=== PATIENT | female | born 1950 | race Caucasian/White ===

== ENCOUNTER → 2016-07-04 | Outpatient (CLI) | payer OTHER ==
[~2016-07-04] MED LIST: BUPR200T2 PO; CHOL100010 PO; DIVA500T5 PO; DONE1TAB11 PO; DPKSR250 PO; FURO20TA PO; GDN/80 PO; LEVO75TA PO; OXCA150T2 PO; PIOG15TA24 PO; PRCSR30 PO; RAMI10CA PO; ROSU5TAB PO; VITACAP26 PO; VTMB122500 PO
[2016-07-04 18:32] LABS: BLOOD UREA NITROGEN 20 mg/dl (7-18); BUN/CREATININE RATIO 22.4 (10-20); CARBON DIOXIDE 33 mmol/L (21-32); CHLORIDE 100 mmol/L (98-107); GLUCOSE 87 mg/dl (70-99); MAGNESIUM 1.9 mg/dl (1.8-2.4); POTASSIUM 4.1 mmol/L (3.5-5.1); SODIUM 141 mmol/L (136-145)
== END | disposition home or self-care (01) ==
LOC: C.LABMFLN 11:13
PROVIDERS: ATTEND Family Medicine
DX: E11.9 Type 2 diabetes mellitus without complications (principal); I10 Essential (primary) hypertension; F03.90 Unspecified dementia, unspecified severity, without behavioral disturbance, psychotic disturbance, mood disturbance, and anxiety; E03.9 Hypothyroidism, unspecified; E87.1 Hypo-osmolality and hyponatremia

== ENCOUNTER → 2016-11-04 | Outpatient (CLI) | payer OTHER ==
[2016-11-03 18:01] LABS: BASO % 0.6 %; BASO ABS # 0.03 K/uL (0-0.2); COMPLETE YES; HEMATOCRIT 38.5 % (37-47); IG% 0.2 %; LYMPH % 21.7 %; LYMPH ABS # 1.13 K/uL (1.2-3.4); MEAN CELL VOLUME 92.8 fL (80-100); MEAN CORPUSCULAR HEMOGLOBIN 30.4 pg (25-34); MEAN CORPUSCULAR HGB CONC 32.7 g/dl (32-36); MEAN PLATELET VOLUME 12.1 fL (7.4-10.4); MONO % 11.2 %; NEUT % 65.3 %; PLATELET COUNT 198 K/uL (130-400); RED BLOOD COUNT 4.15 M/uL (4.2-5.4)
[2016-11-03 18:37] LABS: ALB/GLOB RATIO 0.8 (0.9-2); ALT/SGPT 12 U/L (12-78); AST/SGOT 12 U/L (15-37); BLOOD UREA NITROGEN 21 mg/dl (7-18); BUN/CREATININE RATIO 21.7 (10-20); CALCIUM 9.2 mg/dl (8.5-10.1); CARBON DIOXIDE 31 mmol/L (21-32); CHLORIDE 101 mmol/L (98-107); CREATININE 0.96 mg/dl (0.60-1.20); GLUCOSE 106 mg/dl (70-99); POTASSIUM 3.8 mmol/L (3.5-5.1); SODIUM 139 mmol/L (136-145)
[2016-11-03 18:48] LABS: ALKALINE PHOSPHATASE 66 U/L (45-117)
[~2016-11-04] MED LIST changes: +ASPI-435 PO; +BUPR-267 PO; +CHOL1000 PO; +LEVO88TA PO; +MAGN400T6 PO; +METF500T5 PO; +MIRA100T PO; +NIFE1TAB53 PO; +OXCA150T3 PO; +OXYB15TA PO; +SODI1TAB PO
[2016-11-04 07:08] LABS: ESTIMATED AVERAGE GLUCOSE 126 mg/dl; HA1C FLAG Normal (Normal)
[2016-11-04 18:33] LABS: RATIO 23.9 mcg/mg (0-30.0)
--- NOTE | 2016-11-10 08:58 | CODING QUERY MEDICAL NECESSITY ---
SUPPORTING DIAGNOSIS NEEDED Dorina PEREA, A supporting diagnosis is required for the test/procedure performed on this patient in order for us to be reimbursed by the patient's insurance. Please provide a supporting diagnosis for the following test/procedure listed below next to the test name along with your signature. *If there is no additional diagnosis for this patient that would support the following test/procedure please document that below next to the test/procedure. Test(s)/Procedure(s) that require a supporting diagnosis: * ([id number]) B12 VITAMIN LEVEL DIAGNOSIS: * ([id number]) VITAMIN D ASSAY DIAGNOSIS: DATE OF SERVICE: 11/03/16 Provider Signature: Date: Thank you Leo Delgadillo [facility] Information Management Once completed, please kindly fax back to [phone] For questions please call [phone]
== END | disposition home or self-care (01) ==
LOC: C.LABMFLN 09:11
PROVIDERS: ATTEND Physician Assistant
DX: E11.9 Type 2 diabetes mellitus without complications (principal); I10 Essential (primary) hypertension; E66.01 Morbid (severe) obesity due to excess calories; E03.9 Hypothyroidism, unspecified; E78.5 Hyperlipidemia, unspecified; Z78.0 Asymptomatic menopausal state; R29.898 Other symptoms and signs involving the musculoskeletal system

== ENCOUNTER → 2017-01-19 | Outpatient (CLI) | payer OTHER ==
--- NOTE | 2017-01-19 15:42 | MAMMOGRAPHY REPORT ---
BILATERAL DIGITAL SCREENING MAMMOGRAM WITH CAD: 01/19/2017 CLINICAL HISTORY: Routine screening. TECHNIQUE: Bilateral CC, MLO and repeat left CC view with the nipple in profile were obtained. Curre nt study was also evaluated with a Computer Aided Detection (CAD) system. COMPARISON: Comparison is made to exams dated: 09/19/2014 mammogram, 04/25/2013 mammogram, 03/01/2012 m ammogram, and 01/27/2011 mammogram. BREAST COMPOSITION: There are scattered areas of fibroglandular density in both breasts. FINDINGS: There are scattered benign calcifications and vascular calcifications in the breasts. No n ew suspicious mass, architectural distortion or cluster of microcalcifications is seen. IMPRESSION: ACR BI-RADS CATEGORY 1: NEGATIVE There is no mammographic evidence of malignancy. A 1 year screening mammogram is recommended. The pa tient will receive written notification of the results. Approximately 10% of breast cancers are not detected with mammography. A negative mammographic report should not delay biopsy if a clinically suggestive mass is present. Marifer Luna M.D. ay/:01/19/2017 15:03:17 Well Logging Captain: Neftaly Valente RT(R)(M), [facility] letter sent: Normal 1/2 BI-RADS Code: ACR BI-RADS Category 1: Negative
== END | disposition home or self-care (01) ==
LOC: C.MAMM 14:33
PROVIDERS: ATTEND Physician Assistant
DX: Z12.31 Encounter for screening mammogram for malignant neoplasm of breast (principal)

== ENCOUNTER → 2017-02-17 | Outpatient (CLI) | payer OTHER ==
--- NOTE | 2017-02-17 16:25 | EEG Procedure Note ---
EEG Procedure Note Date of Service Feb 17, 2017. Start / End Times Start Time: 1:45 PM End Time: 2:06 PM Referring Physician Familia Serrano History This is a 66-year-old female with an episode of altered consciousness. EEG for further evaluation of possible seizure etiology. Home Medication List Scheduled Bupropion (Wellbutrin Sr), 200 MG PO BID Cholecalciferol (Vitamin D), 1,000 INTER.UNIT PO DAILY Cyanocobalamin (Vitamin B-12), 1 TAB PO WK Divalproex Sodium (Depakote Delay Rel), 1 TAB PO HS Divalproex Sodium (Divalproex Sodium ER), 1 TAB PO HS Donepezil Hydrochloride (Donepezil Hcl), 1 TAB PO HS Furosemide (Lasix), 1 TAB PO BID Levothyroxine Sodium (Synthroid), 1 TAB PO DAILY Nifedipine (Nifedical Xl), 1 TAB PO DAILY Oxcarbazepine (Trileptal), 150 MG PO BID Pioglitazone Hcl-Metformin 15/500 Mg (Actoplus Met 15/500 Mg), 1 TAB PO DAILY Ramipril (Ramipril), 1 CAP PO DAILY Rosuvastatin Calcium (Crestor), 1 TAB PO HS Vitamins C & E (Vitamin C), 1,000 MG PO DAILY Ziprasidone Hcl (Geodon), 1 CAP PO BID Description This is a 21 electrode EEG with a single channel dedicated to limited EKG. The electrodes were placed in accordance with the International 10-20 system. At the start of the recording the patient was in an awake state. Background was well organized and composed of symmetric mixed alpha and beta frequencies. There was a symmetric well-formed moderate amplitude 8-9 Hz posterior dominant rhythm that was reactive to eye opening and closure. Hyperventilation was not done. Intermittent photic stimulation at various frequencies produced no abnormalities. There was no state changes or sleep transients. Interpretation This is a normal awake only routine EEG. There was no electrographic seizures or epileptiform discharges. Clinical Correlation A normal EEG does not rule out epilepsy if there is a strong clinical suspicion.
== END | disposition home or self-care (01) ==
LOC: C.NEUR 13:32
PROVIDERS: ATTEND Psychiatry & Neurology Neurology
DX: R40.4 Transient alteration of awareness (principal)

== ENCOUNTER → 2017-03-16 | Outpatient (CLI) | payer OTHER ==
[2017-03-16 18:28] LABS: BLOOD UREA NITROGEN 14 mg/dl (7-18); BUN/CREATININE RATIO 17.4 (10-20); CALCIUM 9.5 mg/dl (8.5-10.1); CARBON DIOXIDE 29 mmol/L (21-32); CHLORIDE 95 mmol/L (98-107); CREATININE 0.82 mg/dl (0.60-1.20); GLUCOSE 93 mg/dl (70-99); MAGNESIUM 1.6 mg/dl (1.8-2.4); PHOSPHORUS 2.8 mg/dl (2.5-4.9); POTASSIUM 4.2 mmol/L (3.5-5.1); SODIUM 132 mmol/L (136-145)
== END | disposition home or self-care (01) ==
LOC: C.LABMFLN 14:11
PROVIDERS: ATTEND Internal Medicine Nephrology
DX: E87.1 Hypo-osmolality and hyponatremia (principal)

== ENCOUNTER → 2017-04-13 | Day surgery (SDC) | payer OTHER ==
[2017-04-01 10:01] VITALS: Ht 152.4 cm; Wt 106.8 kg
[~2017-04-13] VITALS: Ht 152.4 cm; Wt 106.8 kg
[~2017-04-13] MED LIST changes: -BUPR200T2 PO; -CHOL100010 PO; -FURO20TA PO; -LEVO75TA PO; +LIDOCAINE HCL 2% 2 ML VIAL (20MG/ML) ONE; +MIDAZOLAM HCL 1 MG/ML 2ML VIAL ONE; -PIOG15TA24 PO; -PRCSR30 PO; +PROPOFOL IV EMULSION 10 MG/ML 20 ML VIAL IV ONE; -VITACAP26 PO
--- NOTE | 2017-04-13 14:37 | Endo History and Physical ---
History & Physical Date of Service: Apr 13, 2017. Chief Complaint: Positive hemocult stool Referring Physician: Dr Cam History of Present Illness For colonoscopy Past Surgical History Hx Cardiac Surgery: No Hx Internal Defibrillator: No Hx Pacemaker: No Hx Abdominal Surgery: Yes (D&C) Hx of Implantable Prosthesis: No Hx Post-Op Nausea and Vomiting: No Hx Cancer Surgery: Yes (SKIN CANCER REMOVAL) Hx Thoracic Surgery: No Hx Orthopedic: No Hx Urinary Tract Surgery: No Family History Polyp Social History Smoking Status: Never Smoker Hx Substance Use: No Hx Alcohol Use: No Allergies Coded Allergies: Topiramate (Verified Allergy, Unknown, CONFUSION, 04/13/17) Current Medications Reported Home Medications Medications Dose Route/Sig Max Daily Dose Days Date Category Myrbetriq Er (Mirabegron) 25 Mg Tab 25 Mg PO QAM 04/01/17 Reported Glucophage Er (Metformin HCl) 500 Mg Tab 500 Mg PO QAM 04/01/17 Reported Vitamin D3 (Cholecalciferol) 1,000 Unit Tab 1 Tab PO BID 04/01/17 Reported Sodium Chloride 1 Gm Tab 1 Tab PO BID 04/01/17 Reported Mag-Ox (Magnesium Oxide) 400 Mg Tab 400 Mg PO BID 04/01/17 Reported Trileptal (Oxcarbazepine) 150 Mg Tab 2 Tabs PO HS 04/01/17 Reported Oxybutynin Chloride Er (Oxybutynin Chloride) 15 Mg Tab 1 Tab PO QAM 04/01/17 Reported Aspirin 81 (Aspirin) 81 Mg Tab 1 Tab PO QAM 04/01/17 Reported Nifedipine Er (Nifedipine) 30 Mg Tab 1 Tab PO QAM 04/01/17 Reported Synthroid (Levothyroxine Sodium) 88 Mcg Tab 88 Mcg PO QAM 04/01/17 Reported Bupropion Hcl Er (Bupropion Hcl) 150 Mg Tab 1 Tab PO BID 04/01/17 Reported Vitamin B-12 (Cyanocobalamin) 2,500 Mcg Subl 1 Tab PO WK 06/24/15 Reported Trileptal (Oxcarbazepine) 150 Mg Tab 150 Mg PO QAM 06/24/15 Reported Donepezil Hcl (Donepezil Hydrochloride) 5 Mg Tab 1 Tab PO HS 06/24/15 Reported Ramipril 10 Mg Cap 1 Cap PO QAM 06/24/15 Reported Crestor (Rosuvastatin Calcium) 5 Mg Tab 1 Tab PO HS 06/24/15 Reported Geodon (Ziprasidone Hcl) 80 Mg Cap 2 Cap PO HS 06/24/15 Reported Divalproex Sodium ER (Divalproex Sodium) 250 Mg Tabcr 1 Tab PO HS 06/24/15 Reported Depakote Delay Rel (Divalproex Sodium) 500 Mg Tab 2 Tabs PO HS 06/24/15 Reported Vital Signs Weight (Kilograms): 106.82 Height (Feet): 5 Height (Inches): 0 Physical Exam General Appearance: + obese, + pertinent finding (tremor) Respiratory/Chest: Respiratory effort: no dyspnea Cardiovascular: Heart Auscultation: RRR Abdomen: Inspection & Palpation: soft Assessment and Plan Heme positive stool for colonoscopy
--- NOTE | 2017-04-13 15:11 | Discharge Instructions ---
Endoscopy Patient Instructions Date / Procedure(s) Performed Apr 13, 2017. Colonoscopy Allergy Information Coded Allergies: Topiramate (Verified Allergy, Unknown, CONFUSION, 04/13/17) Discharge Date / Findings Apr 13, 2017. polyp Medication Instructions Stopped Medication(s): Metformin LD 04/10/17 Restart Stopped Medication(s): resume meds Reported Home Medications Medications Dose Route/Sig Max Daily Dose Days Date Category Myrbetriq Er (Mirabegron) 25 Mg Tab 25 Mg PO QAM 04/01/17 Reported Glucophage Er (Metformin HCl) 500 Mg Tab 500 Mg PO QAM 04/01/17 Reported Vitamin D3 (Cholecalciferol) 1,000 Unit Tab 1 Tab PO BID 04/01/17 Reported Sodium Chloride 1 Gm Tab 1 Tab PO BID 04/01/17 Reported Mag-Ox (Magnesium Oxide) 400 Mg Tab 400 Mg PO BID 04/01/17 Reported Trileptal (Oxcarbazepine) 150 Mg Tab 2 Tabs PO HS 04/01/17 Reported Oxybutynin Chloride Er (Oxybutynin Chloride) 15 Mg Tab 1 Tab PO QAM 04/01/17 Reported Aspirin 81 (Aspirin) 81 Mg Tab 1 Tab PO QAM 04/01/17 Reported Nifedipine Er (Nifedipine) 30 Mg Tab 1 Tab PO QAM 04/01/17 Reported Synthroid (Levothyroxine Sodium) 88 Mcg Tab 88 Mcg PO QAM 04/01/17 Reported Bupropion Hcl Er (Bupropion Hcl) 150 Mg Tab 1 Tab PO BID 04/01/17 Reported Vitamin B-12 (Cyanocobalamin) 2,500 Mcg Subl 1 Tab PO WK 06/24/15 Reported Trileptal (Oxcarbazepine) 150 Mg Tab 150 Mg PO QAM 06/24/15 Reported Donepezil Hcl (Donepezil Hydrochloride) 5 Mg Tab 1 Tab PO HS 06/24/15 Reported Ramipril 10 Mg Cap 1 Cap PO QAM 06/24/15 Reported Crestor (Rosuvastatin Calcium) 5 Mg Tab 1 Tab PO HS 06/24/15 Reported Geodon (Ziprasidone Hcl) 80 Mg Cap 2 Cap PO HS 06/24/15 Reported Divalproex Sodium ER (Divalproex Sodium) 250 Mg Tabcr 1 Tab PO HS 06/24/15 Reported Depakote Delay Rel (Divalproex Sodium) 500 Mg Tab 2 Tabs PO HS 06/24/15 Reported Provider Instructions Activity Restrictions - No exercising or heavy lifting for 24 hours. - Do not drink alcohol the day of the procedure. - Do not drive a car or operate machinery until the day after the procedure. - Do not make any important decisions or sign important papers in 24 hours after the procedure. Following Day: - Return to full activity which may include returning to work/school. Diet Start your diet with liquids and light foods (jello, soup, juice, toast). Then eat your usual diet if not nauseated. Treatment For Common After Affects For mild abdominal pain, bloating, or excessive gas: - Rest - Eat lightly - Lie on right side Follow-Up Information Follow-up with Dr Cam as scheduled Anesthesia Information What You Should Know You have had a procedure that required some medicine to reduce anxiety and discomfort. This treatment is called moderate sedation. After receiving the treatment, you may be sleepy, but you will be able to breathe on your own. The effects of the treatment may last for several hours. Follow these instructions along with Activity/Diet recommendations noted above: * Do NOT do anything where dizziness or clumsiness would be dangerous. * Rest quietly at home today, then you can be up and about tomorrow. * Have a responsible person stay with you the rest of today. * You may have had an I.V. today. If so, you may take the dressing off later today. Recommendations Call your doctor if: * Trouble breathing * Continuous vomiting for more than 24 hours * Temperature above 101 degrees * Severe abdominal pain or bloating * Pain not relieved by pain medicine ordered * There is increased drainage or redness from any incision * A large amount of rectal bleeding greater than 2-3 tablespoons. (If you had a polyp/s removed or have hemorrhoids, a small amount of blood - from the rectum is to be expected.) * You have any unanswered questions or concerns. IN THE EVENT OF A SERIOUS EMERGENCY, GO TO THE NEAREST EMERGENCY ROOM Your discharge instructions were prepared by provider Hayden Carcamo. Patient Instructions Signature Page Shaista Pardo Patient (or Guardian) Signature/Date: I have read and understand the instructions given to me by my caregivers. Caregiver/RN/Doctor Signature/Date: The above-named patient and/or guardian has received patient instructions on this date. + Original Patient Signature Page (only) stays with chart. Please make copy for patient.
--- NOTE | 2017-04-13 15:14 | GI REPORT ---
Procedure Date: 04/13/2017 2:51 PM Procedure: Colonoscopy Indications: Heme positive stool Medicines: Midazolam 2 mg IV, Propofol total dose 150 mg IV, Lidocaine 40 mg IV Complications: No immediate complications. Estimated Blood Loss: Estimated blood loss: none. Procedure: Pre-Anesthesia Assessment: - Prior to the procedure, a History and Physical was performed, and patient medications, allergies and sensitivities were reviewed. The patient's tolerance of previous anesthesia was reviewed. - The risks and benefits of the procedure and the sedation options and risks were discussed with the patient. All questions were answered and informed consent was obtained. After I obtained informed consent, the scope was passed under direct vision. Throughout the procedure, the patient's blood pressure, pulse, and oxygen saturations were monitored continuously. The scope was introduced through the anus and advanced to the terminal ileum. The colonoscopy was performed without difficulty. The patient tolerated the procedure well. The quality of the bowel preparation was good. Findings: A 7 mm polyp was found in the cecum. The polyp was semi-sessile. The polyp was removed with a hot snare. Resection and retrieval were complete. Estimated blood loss: none. Impression: - One 7 mm polyp in the cecum, removed with a hot snare. Resected and retrieved. Recommendation: - Discharge patient to home (ambulatory). - Continue present medications. - Await pathology results. - Return to primary care physician PRN. Hayden Carcamo M.D. Hayden Carcamo MD 04/13/2017 3:13:38 PM This report has been signed electronically. Note Initiated On: 04/13/2017 2:51 PM I attest to the content of the Intraoperative Record and orders documented therein, exceptions below
[2017-04-13 15:45] VITALS: BP 101/76; PULSE 77; O2SAT 97
--- NOTE | 2017-04-13 16:17 | Anesthesiology Progress Note ---
Anesthesia Post Op Note Date & Time Apr 13, 2017 at 16:17 Vital Signs Pain Intensity: 0 Vital Signs Past 12 Hours Date Time Temp Pulse Resp B/P (MAP) Pulse Ox O2 Delivery O2 Flow Rate FiO2 04/13/17 15:45 77 16 101/76 (84) 97 Room Air 04/13/17 15:30 79 16 123/87 (99) 96 Room Air 04/13/17 15:18 79 16 156/70 (98) 96 Room Air 04/13/17 14:29 37.0 85 18 192/72 (112) 96 Room Air Notes Mental Status: alert / awake / arousable, participated in evaluation Pt Amnestic to Procedure: Yes Nausea / Vomiting: adequately controlled Pain: adequately controlled Airway Patency, RR, SpO2: stable & adequate BP & HR: stable & adequate Hydration State: stable & adequate Anesthetic Complications: no major complications apparent
== END | disposition home or self-care (01) ==
LOC: C.GI 13:50
PROVIDERS: ATTEND Internal Medicine Gastroenterology
DX: R19.5 Other fecal abnormalities (principal); D12.0 Benign neoplasm of cecum; E11.9 Type 2 diabetes mellitus without complications; I10 Essential (primary) hypertension; E66.9 Obesity, unspecified; F31.9 Bipolar disorder, unspecified; F20.9 Schizophrenia, unspecified; M19.90 Unspecified osteoarthritis, unspecified site; Z90.89 Acquired absence of other organs; Z79.899 Other long term (current) drug therapy; Z85.828 Personal history of other malignant neoplasm of skin; Z68.42 Body mass index [BMI] 45.0-49.9, adult; Z83.71 Family history of colonic polyps

== ENCOUNTER → 2017-05-26 | Outpatient (CLI) | payer OTHER ==
[~2017-05-26] MED LIST changes: -LIDOCAINE HCL 2% 2 ML VIAL (20MG/ML) ONE; -MIDAZOLAM HCL 1 MG/ML 2ML VIAL ONE; -PROPOFOL IV EMULSION 10 MG/ML 20 ML VIAL IV ONE
[2017-05-26 18:04] LABS: BASO % 0.4 %; BASO ABS # 0.02 K/uL (0-0.2); COMPLETE YES; EOS % 0.9 %; HEMATOCRIT 40.1 % (37-47); IG% 0.2 %; LYMPH % 23.7 %; LYMPH ABS # 1.26 K/uL (1.2-3.4); MEAN CELL VOLUME 93.7 fL (80-100); MEAN CORPUSCULAR HEMOGLOBIN 30.6 pg (25-34); MEAN CORPUSCULAR HGB CONC 32.7 g/dl (32-36); MEAN PLATELET VOLUME 12.3 fL (7.4-10.4); MONO % 9.2 %; NEUT % 65.6 %; PLATELET COUNT 158 K/uL (130-400); RED BLOOD COUNT 4.28 M/uL (4.2-5.4); WHITE BLOOD COUNT 5.32 K/uL (4.8-10.8)
[2017-05-26 18:16] LABS: ALT/SGPT 11 U/L (12-78); BLOOD UREA NITROGEN 15 mg/dl (7-18); BUN/CREATININE RATIO 15.2 (10-20); CALCIUM 9.1 mg/dl (8.5-10.1); CARBON DIOXIDE 29 mmol/L (21-32); CHLORIDE 103 mmol/L (98-107); CHOLESTEROL 133 mg/dl (0-200); CREATININE 0.99 mg/dl (0.60-1.20); GLUCOSE 81 mg/dl (70-99); POTASSIUM 4.2 mmol/L (3.5-5.1); SODIUM 139 mmol/L (136-145)
[2017-05-26 18:27] LABS: ALB/GLOB RATIO 0.7 (0.9-2); ALKALINE PHOSPHATASE 61 U/L (45-117); AST/SGOT 14 U/L (15-37); CHOLESTEROL/HDL RATIO 1.6; HDL CHOLESTEROL 84 mg/dl; LDL CHOLESTEROL CALCULATED 37 mg/dl; TRIGLYCERIDES 61 mg/dl (0-150); VERY LOW DENSITY LIPOPROT CALC 12 mg/dl
[2017-05-27 06:11] LABS: ESTIMATED AVERAGE GLUCOSE 114 mg/dl; HA1C FLAG Normal (Normal)
== END | disposition home or self-care (01) ==
LOC: C.LABMFLN 12:49
PROVIDERS: ATTEND Physician Assistant
DX: E11.9 Type 2 diabetes mellitus without complications (principal); I10 Essential (primary) hypertension; E78.5 Hyperlipidemia, unspecified; E03.9 Hypothyroidism, unspecified

== ENCOUNTER → 2017-09-21 | Outpatient (CLI) | payer OTHER ==
[~2017-09-21] MED LIST changes: -DONE1TAB11 PO; +DONE5TAB26 PO; -NIFE1TAB53 PO; +NIFE30TA86 PO
[2017-09-21 18:01] LABS: ALBUMIN 2.7 gm/dl (3.4-5.0); BLOOD UREA NITROGEN 23 mg/dl (7-18); CARBON DIOXIDE 29 mmol/L (21-32); CREATININE 0.97 mg/dl (0.60-1.20); GLUCOSE 90 mg/dl (70-99); PHOSPHORUS 2.2 mg/dl (2.5-4.9); POTASSIUM 4.3 mmol/L (3.5-5.1); SODIUM 140 mmol/L (136-145)
== END | disposition home or self-care (01) ==
LOC: C.LABMFLN 12:30
PROVIDERS: ATTEND Internal Medicine Nephrology
DX: E87.1 Hypo-osmolality and hyponatremia (principal)

== ENCOUNTER → 2017-09-22 | Outpatient (CLI) | payer OTHER | END | disposition home or self-care (01) | LOC: C.LABMFLN 10:00 | PROVIDERS: ATTEND Internal Medicine Nephrology | DX: E22.2 Syndrome of inappropriate secretion of antidiuretic hormone (principal) ==

== ENCOUNTER → 2018-01-28 | Outpatient (CLI) | payer OTHER ==
[~2018-01-28] MED LIST changes: +DIVA-36 PO; -DIVA500T5 PO
[2018-01-28 18:12] LABS: BASO % 0.2 %; BASO ABS # 0.01 K/uL (0-0.2); EOS ABS # 0.05 K/uL (0-0.5); HEMATOCRIT 41.2 % (37-47); HEMOGLOBIN 13.8 g/dL (12.0-16.0); IG# 0.01 K/uL (0.00-0.02); LYMPH % 24.6 %; LYMPH ABS # 1.28 K/uL (1.2-3.4); MEAN CELL VOLUME 93.6 fL (80-100); MEAN CORPUSCULAR HEMOGLOBIN 31.4 pg (25-34); MEAN CORPUSCULAR HGB CONC 33.5 g/dl (32-36); MEAN PLATELET VOLUME 13.3 fL (7.4-10.4); MONO % 9.2 %; MONO ABS # 0.48 K/uL (0.11-0.59); NEUT % 64.8 %; NEUT ABS # 3.38 K/uL (1.4-6.5); PLATELET COUNT 171 K/uL (130-400); RED CELL DISTRIBUTION WIDTH SD 50.9 fL (36.4-46.3); WHITE BLOOD COUNT 5.21 K/uL (4.8-10.8)
[2018-01-28 18:21] LABS: ALBUMIN 2.9 gm/dl (3.4-5.0)
[2018-01-28 18:32] LABS: ALBUMIN 2.9 gm/dl (3.4-5.0); ALKALINE PHOSPHATASE 54 U/L (45-117); ALT/SGPT 15 U/L (12-78); AST/SGOT 14 U/L (15-37); BLOOD UREA NITROGEN 16 mg/dl (7-18); CARBON DIOXIDE 30 mmol/L (21-32); CHOLESTEROL 145 mg/dl (0-200); CREATININE 1.14 mg/dl (0.60-1.20); GLUCOSE 95 mg/dl (70-99); LDL CHOLESTEROL CALCULATED 52 mg/dl; SODIUM 139 mmol/L (136-145); TOTAL PROTEIN 7.1 gm/dl (6.4-8.2)
[2018-01-29 05:33] LABS: HEMOGLOBIN A1C 5.9 % (4.5-5.6)
== END | disposition home or self-care (01) ==
LOC: C.LABMFLN 12:15
PROVIDERS: ATTEND Psychiatry & Neurology Psychiatry
DX: E11.9 Type 2 diabetes mellitus without complications (principal); I10 Essential (primary) hypertension; E78.5 Hyperlipidemia, unspecified; E03.9 Hypothyroidism, unspecified; E83.42 Hypomagnesemia; Z51.81 Encounter for therapeutic drug level monitoring; Z79.899 Other long term (current) drug therapy

== ENCOUNTER → 2018-01-29 | Outpatient (CLI) | payer OTHER | END | disposition home or self-care (01) | LOC: C.LABMFLN 12:00 | PROVIDERS: ATTEND Physician Assistant | DX: E11.9 Type 2 diabetes mellitus without complications (principal); I10 Essential (primary) hypertension; E78.5 Hyperlipidemia, unspecified; E03.9 Hypothyroidism, unspecified ==

== ENCOUNTER 2024-06-25 05:50 | Observation (INO) ==
[2024-06-25 07:10] LABS: Basophils # (auto) 0.03 K/uL (0.00-0.20); Basophils % (auto) 0.3 %; Hematocrit (blood only) 39.3 % (37.0-47.0); Immature Granulocytes # (auto) 0.06 K/uL (0.01-0.20); Immature Granulocytes % (auto) 0.6 %; Lymphocytes # (auto) 1.09 K/uL (1.20-3.40); Lymphocytes % (auto) 11.5 %; Mean Corpuscular Hgb Conc 33.1 g/dL (32.0-36.0); Mean Corpuscular Volume 93.6 fL (80.0-100.0); Mean Platelet Volume 12.4 fL (9.4-12.4); Monocytes # (auto) 1.24 K/uL (0.11-0.59); Monocytes % (auto) 13.1 %; Neutrophils # (auto) 7.03 K/uL (1.40-6.50); Neutrophils % (auto) 74.5 %; Platelet Count 196 K/uL (130-400); RDW Coefficient of Variation 14.8 % (11.5-14.5); RDW Standard Deviation 51.7 fL (36.4-46.3); White Blood Count 9.45 K/ul (4.8-10.8)
[2024-06-25 07:25] LABS: Albumin Level 3.1 gm/dl (3.4-5.0); BUN Creatinine Ratio 13.6 (10-20); Bilirubin Direct 0.1 mg/dl (0-0.2); Bilirubin,Total 0.5 mg/dl (0.2-1.0); Calcium 9.4 mg/dl (8.6-10.3); Creatinine Clr Calc Pharmacy 42.1 ml/min; Potassium 4.2 mmol/L (3.5-5.1); Total Protein 6.6 gm/dl (6.0-8.3)
[2024-06-25] MEDS: OPTIRAY 320 100ml IV ONE (07:30)
[2024-06-25 07:31] LABS: Troponin I High Sensitivity 19.5 pg/ml (0-14)
--- NOTE | 2024-06-25 08:11 | Emergency Department Note ---
History of Present Illness General Chief complaint: Fall Stated complaint: FALLEN 8 TIMES IN THE LAST 24 HOURS, NECK PAIN Time Seen by Provider: 06/25/24 06:48 History of Present Illness Provider complaint: Recurrent falls 74-year-old female presents emergency department with her for recurrent falls. Patient has a history of dementia and the history is provided mainly by the . reports that the patient has been falling multiple times since . He reports they were in a rehab facility for 2 weeks after . When asked the patient's that it has not been 2 weeks since he then became confused and stated that they were in [place] during . The then stated that the patient was admitted to [place] by April and has been following since April. is unable to give a clear history but states that the patient has been falling multiple times at home and is very weak. Home Medications Medication Instructions Recorded Confirmed Type aspirin 81 mg tablet,delayed 81 mg PO QAM 11/29/18 06/25/24 History release cyanocobalamin (vitamin B-12) 500 500 mcg sublingual QAM #30 tabs 12/01/18 06/25/24 History mcg disintegrating tablet,sublingual magnesium oxide 400 mg (241.3 mg 400 mg PO QAM 12/01/18 06/25/24 History magnesium) tablet ziprasidone HCl 60 mg capsule 120 mg (2 x 60 mg) PO HS #90 caps 12/08/18 06/25/24 Rx alendronate 70 mg tablet 70 mg PO WK #12 tabs 12/04/22 06/25/24 Rx vibegron 75 mg tablet (Gemtesa) 75 mg PO DAILY #90 tabs 09/23/23 06/25/24 Rx levothyroxine 125 mcg tablet 125 mcg PO DAILY #90 tabs 01/04/24 06/25/24 Rx nifedipine 30 mg tablet,extended 30 mg PO QAM #90 tabs 01/04/24 06/25/24 Rx release 24 hr oxybutynin chloride 15 mg 15 mg PO QAM #90 tabs 01/04/24 06/25/24 Rx tablet,extended release 24 hr donepezil 5 mg tablet 5 mg PO QPM #90 tabs 03/23/24 06/25/24 Rx metformin 500 mg tablet,extended 500 mg PO QAM #90 tabs 03/23/24 06/25/24 Rx release 24 hr atorvastatin 10 mg tablet 10 mg PO DAILY 06/13/24 06/25/24 History bupropion HCl 150 mg tablet,12 hr 150 mg PO QAM #30 ea 06/13/24 06/25/24 Rx sustained-release calcium citrate 200 mg PO DAILY 06/13/24 06/25/24 History cholecalciferol (vitamin D3) 25 1,000 unit PO QAM 06/13/24 06/25/24 History mcg (1,000 unit) capsule divalproex 250 mg tablet,extended 250 mg PO HS 06/13/24 06/25/24 History release 24 hr divalproex 500 mg tablet,extended 1,000 mg PO HS 06/13/24 06/25/24 History release 24 hr lisinopril 40 mg tablet 40 mg PO DAILY 06/13/24 06/25/24 History furosemide 20 mg tablet 20 mg PO 3XWK #36 tabs 06/17/24 06/25/24 Rx Allergies Allergy/AdvReac Type Severity Reaction Status Date / Time topiramate AdvReac Intermediate CONFUSION Verified 06/13/24 10:20 Past Med/Surg History Problem List (Updated 06/25/24 @ 11:21 by Jg Munson MD) Acute UTI (Acute) Elevated troponin Elevated troponin I level (Acute) Recurrent falls (Acute) History of colon polyps Personal history of fall (Acute) Metabolic syndrome Osteopenia Spleen anomaly Generalized weakness Bilateral lower extremity edema CKD stage 3 due to type 2 diabetes mellitus Arthritis (Acute) osteoarthritis Dementia (Acute) Diabetes (Acute) NIDDM Hyperlipidemia (Acute) Hypertension (Acute) Hypomagnesemia (Acute) Hyponatremia (Acute) Hypothyroidism (Acute) Morbid obesity (Acute) BMI 43.9 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 5yrs ago--no deficits--followed with Dr. Serrano (was cleared by neurologist) Edema Leg weakness High cholesterol Surgical History H/O tooth extraction 02/16/23 History of colonoscopy History of wisdom tooth extraction H/O dilation and curettage S/P thyroid surgery partial thyroidectomy (suspected cancer but was found to be benign) @ [facility] History of bilateral cataract extraction Family History Aunt Breast cancer Grandmother (Maternal) Breast cancer Mother Diabetes Cardiac disorder Kidney disease Myocardial infarction Congenital kidney disease Hypertension Father Alcohol abuse Bipolar disorder Cardiac disorder Myocardial infarction Seizure Hypertension Sister Diabetes Other No family history of adverse response to anesthesia Denies family history of Ovarian cancer Prostate cancer Colorectal cancer Social History Smoking Status: Never smoker Second Hand Exposure: No; Do You Dip or Chew Tobacco: No; Hx Alcohol Use: No Hx Substance Use: No Preferred Language: Mosotho Communication Ability: Effective Visual Impairment: Limited Hearing Ability: Use of Hearing Aid Cash Control Specialist Required: No Beliefs That Will Affect Care: None marital status: Current Living Situation: Spouse current occupational status: retired How many Children do You have: 3 Feels Safe at Home: Yes Childhood Exposure to Second-Hand Smoke: No Diet: regular Diet Comment: Sees Nutrionist caffeine: Yes during the past year weight has: remained stable Dental Care, Regularly: No Physical Activity Frequency: Does not Exercise Seatbelt Use: always Sunscreen Use: No Do you think of yourself as: straight/heterosexual Gender Identity: Female Assistive Devices: Glasses, Hearing Aid - Bilateral, Walker and Wheelchair Physical Exam Vital Signs Vital Signs - 24 hr 06/25/24 05:59 06/25/24 06:02 06/25/24 07:09 Temperature 37.4 C Temperature Source Oral Pulse Rate 74 74 74 Pulse Rate from SpO2 Sensor 74 Respiratory Rate 19 18 Respiratory Effort / Characteristics Non-Labored Spontaneous Respiratory Depth Normal Respiratory Pattern Regular Blood Pressure 104/56 L Blood Pressure Mean 72 Blood Pressure Position Lying Pulse Oximetry 94 93 Oxygen Delivery Method Room Air Sepsis Recent Fever Within 48 Hours Yes Sepsis New/Unexplained Change in Mental Status No Sepsis Action Taken by Nursing No Action Required 06/25/24 07:11 06/25/24 08:00 06/25/24 08:36 Temperature Temperature Source Pulse Rate 73 80 Pulse Rate from SpO2 Sensor 73 80 Respiratory Rate 22 22 Respiratory Effort / Characteristics Respiratory Depth Respiratory Pattern Blood Pressure 152/68 H Blood Pressure Mean 99 Blood Pressure Position Pulse Oximetry 98 100 Oxygen Delivery Method Sepsis Recent Fever Within 48 Hours Sepsis New/Unexplained Change in Mental Status Sepsis Action Taken by Nursing 06/25/24 09:27 06/25/24 09:31 06/25/24 10:02 Temperature Temperature Source Pulse Rate 83 Pulse Rate from SpO2 Sensor 81 Respiratory Rate 27 H Respiratory Effort / Characteristics Respiratory Depth Respiratory Pattern Blood Pressure 159/66 H 118/71 Blood Pressure Mean 71 80 Blood Pressure Position Pulse Oximetry 96 Oxygen Delivery Method Sepsis Recent Fever Within 48 Hours Sepsis New/Unexplained Change in Mental Status Sepsis Action Taken by Nursing 06/25/24 10:03 06/25/24 10:11 06/25/24 10:24 Temperature Temperature Source Pulse Rate 97 H 94 H Pulse Rate from SpO2 Sensor 273 H Respiratory Rate 25 H Respiratory Effort / Characteristics Respiratory Depth Respiratory Pattern Blood Pressure Blood Pressure Mean Blood Pressure Position Pulse Oximetry 95 Oxygen Delivery Method Room Air Sepsis Recent Fever Within 48 Hours Sepsis New/Unexplained Change in Mental Status Sepsis Action Taken by Nursing 06/25/24 10:30 06/25/24 11:03 Temperature Temperature Source Pulse Rate 91 H 90 Pulse Rate from SpO2 Sensor 90 90 Respiratory Rate 25 H 23 Respiratory Effort / Characteristics Respiratory Depth Respiratory Pattern Blood Pressure Blood Pressure Mean Blood Pressure Position Pulse Oximetry 100 96 Oxygen Delivery Method Room Air Sepsis Recent Fever Within 48 Hours Sepsis New/Unexplained Change in Mental Status Sepsis Action Taken by Nursing Physical Exam HENT: Exam performed. -Head: Normocephalic and atraumatic. -Mouth/Throat: The oropharynx is clear and moist. No trismus in the jaw. No dental abscesses or uvula swelling. No oropharyngeal exudate or tonsillar abscesses. EYES: Conjunctivae and EOM are normal. Pupils are equal, round, and reactive to light. Right eye exhibits no discharge. Left eye exhibits no discharge. No scleral icterus. NECK: Patient in c-collar. No pain on palpation of the C-spine. CV: Normal rate, regular rhythm, normal heart sounds and intact distal pulses. There is no peripheral edema. Palpable radial pulses bue. PULM/CHEST: Effort normal and breath sounds normal. No respiratory distress. No stridor. She has no wheezes. She has no rales. -Chest Wall: She exhibits no tenderness. No crepitus bilaterally. ABD: The abdomen is soft. There is no tenderness. There is no rebound, no guarding. MUSC/SKEL: Pelvis stable. NEURO: Motor and sensation grossly intact. Course Course 0648: The patient was evaluated in room C3. A complete history and physical exam was performed Cardiac monitoring: An order was placed for continuous cardiac monitoring. The monitor shows a rate of 80 with sinus rhythm interpreted by me 1001: Vital signs stable. Labs show an elevated high-sensitivity troponin of 19.5 otherwise unremarkable. Imaging is unremarkable. With the patient's history of recurrent falls and her elevated high sensitive troponin patient will be admitted to the [facility] hospitalist team. 1120: Vital signs stable. Urinalysis appears to show UTI. Rocephin ordered for the patient. Patient was evaluated by Dr. Kelsey [facility] hospitalist team and patient will be admitted to his service. Administered Medications Discontinued Medications Ioversol (Optiray 320 100ml) 94 ml IV ONCE ONE Stop: 06/25/24 07:31 Last Admin: 06/25/24 07:30 Dose: 94 ml Documented By: MYA Medical Decision Making Medical Records Attestation: I reviewed the patient's medical records. External medical records reviewed and obtained from the [facility] [employer] system. Patient was admitted to the [facility] patient has a history of schizophrenia and bipolar disorder. Patient was admitted there from May 16 May 19, 2024 for syncope that was thought to be secondary to adverse effects from her multiple psychiatric medications. Patient was discharged to rehab facility. Laboratory Data Attestation: I reviewed the patient's lab results. 06/25/24 06:45 06/25/24 06:45 Lab Results 06/25/24 06/25/24 06/25/24 Range/Units 06:45 08:55 10:53 WBC 9.45 (4.8-10.8) K/ul RBC 4.20 (4.20-5.40) M/uL Hgb 13.0 (12.0-16.0) g/dl Hct 39.3 (37.0-47.0) % MCV 93.6 (80.0-100.0) fL MCH 31.0 (25.0-34.0) pg MCHC 33.1 (32.0-36.0) g/dL RDW Std Deviation 51.7 H (36.4-46.3) fL RDW Coeff of Isidoro 14.8 H (11.5-14.5) % Plt Count 196 (130-400) K/uL MPV 12.4 (9.4-12.4) fL Immature Gran % (Auto) 0.6 % Neut % (Auto) 74.5 % Lymph % (Auto) 11.5 % Kerr % (Auto) 13.1 % Eos % (Auto) 0.0 % Baso % (Auto) 0.3 % Neut # (Auto) 7.03 H (1.40-6.50) K/uL Lymph # (Auto) 1.09 L (1.20-3.40) K/uL Kerr # (Auto) 1.24 H (0.11-0.59) K/uL Eos # (Auto) 0.00 (0.00-0.50) K/uL Baso # (Auto) 0.03 (0.00-0.20) K/uL Immature Gran # (Auto) 0.06 (0.01-0.20) K/uL Sodium 136 (136-145) mmol/L Potassium 4.2 (3.5-5.1) mmol/L Chloride 95 L (98-107) mmol/L Carbon Dioxide 36 H (21-32) mmol/L Anion Gap 5 (3-11) BUN 17 (6-23) mg/dl Creatinine 1.25 H (0.6-1.2) mg/dl Est Cr Clr Drug Dosing 42.1 ml/min eGFR 44.95 BUN/Creatinine Ratio 13.6 (10-20) Glucose 104 H (70-99(Fasting)) mg/dl Calcium 9.4 (8.6-10.3) mg/dl Magnesium 2.0 (1.7-2.4) mg/dl Total Bilirubin 0.5 (0.2-1.0) mg/dl Direct Bilirubin 0.1 (0-0.2) mg/dl AST 20 (13-39) U/L ALT 9 (7-52) U/L Alkaline Phosphatase 57 (34-104) U/L Troponin I High Sens 19.5 H (0-14) pg/ml Total Protein 6.6 (6.0-8.3) gm/dl Albumin 3.1 L (3.4-5.0) gm/dl Urine Color Yellow Urine Appearance Cloudy A (Clear) Urine pH 6.0 (4.5-7.5) Ur Specific [place] 1.015 (1.000-1.030) Urine Protein 3+ H (Negative) Urine Glucose (UA) Negative (Negative) Urine Ketones Trace H (Negative) Urine Blood 3+ H (Negative) Urine Nitrite Positive A (Negative) Urine Bilirubin Negative (Negative) Urine Urobilinogen Negative (Negative) Ur Leukocyte Esterase 1+ H (Negative) Urine RBC >20 H (0-2) /hpf Urine WBC >50 H (0-5) /hpf Ur Epithelial Cells 0-2 (0-2) /hpf Urine Bacteria 3+ H (None Seen) Valproic Acid 113 H (50-100) mcg/ml SARS-CoV-2 (PCR) NEGATIVE (Negative) Influenza Type A (PCR) Negative (Neg) Influenza Type B (PCR) Negative (Neg) RSV (RT-PCR) Negative (Neg) Imaging Data Attestation: I personally reviewed and interpreted this imaging study as follows: My Impression: Pelvis x-ray: No acute fracture or dislocation Radiologist's Impression: Cervical Spine CT 06/25/24 06:17 EXAM: CT cervical spine wo con CLINICAL HISTORY: fall, trauma, posterior neck pain. TECHNIQUE: CT scan of the cervical spine was performed without the administration of intravenous contrast. Contiguous axial images were obtained from the skull base to the upper thoracic spine. Coronal and sagittal reformatted images were also reviewed. One of the following dose reduction techniques was utilized for this exam. Automated exposure control, adjustment of the mA and/or kV according to patient size, and use of iterative reconstruction. COMPARISON: None. FINDINGS: Straitening of the cervical spine, likely secondary to muscular spasms. No evidence of acute fracture or dislocation. The cortical and trabecular bone patterns are normal. No signs of lytic or sclerotic lesions. Mild to moderate spondylotic changes in the visualized spine with multilevel marginal bony hypertrophies, facet arthropathic changes, endplate changes, and reduced intervertebral disc spaces. Multilevel disc bony hypertrophy complexes in combination with facet arthropathic changes exert effects on the spinal canal and neural foraminal. Atlantoaxial degenerative changes. IMPRESSION: 1. No evidence of acute fracture or dislocation. 2. Mild to moderate spondylotic changes were noted. MRI of the cervical spine is advised if clinically indicated. Electronically signed by Jayme Olivera 06-25-2024 08:41 AM Chest X-Ray 06/25/24 06:17 EXAM: XR chest 1V portable CLINICAL HISTORY: TRAUMA -AMS TECHNIQUE: An X-ray image of the chest is obtained in 1 AP projection. COMPARISON: Previous study dated 06/24/2015. FINDINGS: Pulmonary Parenchyma: Prominent both hilar and bronchovascular marking, likely mild congestion. No evidence of consolidation, collapse, or focal opacities. No pulmonary nodules are identified. No evidence of pleural effusion or pleural thickening. Heart and Mediastinum: Heart size and shape are normal. No mediastinal widening or masses. No hilar or mediastinal lymphadenopathy. Bony Thorax: Bony thorax appears intact without fractures or deformities. Soft Tissues: Soft tissues overlying the chest wall are unremarkable. IMPRESSION: - Prominent both hilar and bronchovascular marking, likely mild congestion. Not presented in the old study provided. - No acute fractures. No pneumothorax. - No acute cardiopulmonary abnormalities are identified. Electronically signed by Jayme Olivera 06-25-2024 08:[address] 06/25/24 06:17 EXAM: CT head/brain wo con CLINICAL HISTORY: trauma, fall, posterior neck pain. TECHNIQUE: Axial non-contrast CT scan of the brain was performed from the skull base to the high parietal region. One of the following dose reduction techniques were utilized for this exam: Automated exposure control, adjustment of the mA and/or kV according to patient size, use of iterative reconstruction. COMPARISON: None. FINDINGS: No definite calvarium fractures. There are ill-defined hypodense areas noted in the subcortical white matter and the periventricular region bilaterally, suggestive of moderate microvascular ischemic changes. No established territorial infarction was identified. No evidence of intracerebral hemorrhage. No extra axial hematoma. No other focal parenchymal abnormalities are demonstrated. [place]-white matter differentiation is maintained. No midline shifts or deformity. The ventricular system, cortical sulci, and basal cisterns are prominent and consistent with senile changes. Normal CT appearance of the posterior fossa structures namely the cerebellar hemispheres, brainstem, and cerebellar peduncles. The cerebello-pontine angles are clear. The pituitary gland, the pineal gland, and the optic chiasm are unremarkable. IMPRESSION: 1. No fractures. 2. No brain hemorrhage. 3. Age-related brain involution with Moderate microvascular ischemic changes. Electronically signed by Jayme Olivera 06-25-2024 08:26 AM Pelvis X-Ray 06/25/24 06:17 EXAM: XR pelvis 1-2V routine CLINICAL HISTORY: Multiple followups tenderness to right posterior neck and weakness TECHNIQUE: X-ray images of the pelvis were obtained in anteroposterior (AP) projection. COMPARISON: No prior studies are available for comparison. FINDINGS: Bone Structure: Apparent shortening of right femoral neck, further evaluation is recommended after clinical correlation. Pelvic bones, including the iliac wings, ischium, pubis, and sacrum, are normal and intact. Hip Joints: Hip joints are normal with preserved joint spaces. No evidence of hip dislocation, subluxation, or significant degenerative changes. Acetabulum: Acetabular structures appear normal and intact. No signs of acetabular fracture or dysplasia. Symphysis Pubis: Symphysis pubis is normal and intact. No evidence of separation or widening. Sacroiliac Joints: Sacroiliac joints appear normal and unremarkable. No evidence of sacroiliitis or significant degenerative changes. Soft Tissues: Visualized soft tissues are normal and unremarkable. No soft tissue swelling, calcifications, or masses. Multiple phleboliths are seen in the pelvis. IMPRESSION: - Apparent shortening of right femoral neck, could be degenerative-related changes, however, further evaluation (right hip image) is recommended after clinical correlation. - No other significant abnormalities were noted. Disclaimer: A subtle bone abnormality or fracture may not be readily apparent on X-rays, thus clinical correlation and further imaging including follow-up CT, MRI, or follow-up X-rays are advised as needed. Electronically signed by Jayme Olivera 06-25-2024 08:49 AM Abdomen/Pelvis CT 06/25/24 07:17 EXAM: CT abd pelvis IV con only CLINICAL HISTORY: fall, trauma, posterior neck pain. TECHNIQUE: Contrast-enhanced CT of the abdomen and pelvis was performed, with the following protocol: axial images with, and reconstructed coronal and sagittal images. 94ml Optiray 320 Intravenous contrast was administered. One of the following dose reduction techniques was utilized for this exam: Automated exposure control, adjustment of the mA and/or kV according to patient size, and use of iterative reconstruction. COMPARISON: 06/24/2015. FINDINGS: Abdomen: Liver: Normal in size, shape, and density. No focal lesions, cysts, or masses were identified. Hepatic vasculature and biliary ducts are unremarkable. Gallbladder and Biliary System: The gallbladder is normal in size and shape. No wall thickening, pericholecystic fluid, or gallstones were identified. The common bile duct is normal in caliber without dilation. Pancreas: Pancreatic head, body, and tail are visualized and appear normal in size and density. No pancreatic masses or calcifications were noted. The pancreatic duct is not dilated. Spleen: Normal in size, shape, and density. No splenic lesions or masses were identified. Kidneys and Adrenal Glands: Both kidneys are normal in size, shape, and position. Cortical thickness is within normal limits. No renal calculi. Bilateral mild smooth thickening of the pelvis and ureter wall thickening and adjacent fat stranding. Adrenal glands are unremarkable with no evidence of masses or hyperplasia. Pelvis: Urinary Bladder: Severe wall thickening and adjacent fat stranding suggest cystitis No intraluminal lesions identified. The uterus and adnexa: Unremarkable Rectum and Sigmoid Colon: Normal wall thickness and no evidence of mass. Peritoneal and Retroperitoneal Structures: No free fluid or abnormal fluid collections were identified within the abdomen or pelvis. No lymphadenopathy was noted. A moderate-size hiatal hernia was noted. Bowel: The visualized bowel loops are normal in caliber and appearance. No evidence of bowel obstruction or wall thickening. Bones and Soft Tissues: No fractures or abnormal masses were identified. Spondylotic changes in the lumbar spine with multilevel marginal bony hypertrophies, facet arthropathic changes, endplate changes, and reduced intervertebral disc spaces. Bilateral mild pleural effusion was noted. Moderate cardiomegaly IMPRESSION: 1. No fractures or abnormal masses were identified. moderate Spondylotic changes in the lumbar spine. 2. Severe UB wall thickening and adjacent fat stranding suggest cystitis, Bilateral mild smooth thickening of the pelvis, and ureter wall thickening and adjacent fat stranding suggest infection. 3. Bilateral mild pleural effusion was noted. 4. Moderate cardiomegaly. 5. A moderate-size hiatal hernia was noted. Electronically signed by Jayme Olivera 06-25-2024 08:53 AM Femur X-Ray 06/25/24 09:00 XR femur RT 2V routine CLINICAL HISTORY: fall COMPARISON: Right knee radiographs March 10, 2019. Pelvis radiograph performed earlier today. FINDINGS: Incidental note is made of contrast within the bladder from recent CT. There are no fractures within the right femur. There is moderate right hip joint space narrowing with osteophytosis. There is also moderate to severe right knee osteoarthritis. A small right knee joint effusion is present. IMPRESSION: 1. No fractures within the right femur. 2. Small right knee joint effusion. 3. Moderate to severe right knee osteoarthritis. 4. Moderate right hip osteoarthritis. ACT 112: Negative or not required by law. Electronically signed by: Sergio De Los Santos M.D. 06/25/2024 9:52 AM Hip X-Ray 06/25/24 09:00 XR hip RT min 2V CLINICAL HISTORY: Fall. COMPARISON: Pelvis radiograph and CT of the abdomen and pelvis performed earlier today. FINDINGS: Alignment of the right hip is anatomic. There are no fractures within the right hip. There are no osseous lesions. Incidental note is made of contrast within the bladder from recent contrast enhanced CT. Bladder wall thickening and irregularity is better depicted on CT. There is moderate right hip joint space narrowing with osteophytosis. IMPRESSION: No fractures within the right hip. ACT 112: Negative or not required by law. Electronically signed by: Sergio De Los Santos M.D. 06/25/2024 9:51 AM ECG Data Attestation: I personally reviewed and interpreted this ECG as follows: Rate (beats per minute): 75 Rhythm: + normal sinus ECG Intervals/blocks: + Normal QRS, + Normal ID and + Normal QT-c ECG ST segments: + Normal ST segments MDM Narrative 0648: The patient was evaluated in room C3. A complete history and physical exam was performed Cardiac monitoring: An order was placed for continuous cardiac monitoring. The monitor shows a rate of 80 with sinus rhythm interpreted by mi 1001: Vital signs stable. Labs show an elevated high-sensitivity troponin of 19.5 otherwise unremarkable. Imaging is unremarkable. With the patient's history of recurrent falls and her elevated high sensitive troponin patient will be admitted to the [facility] hospitalist team. 1120: Vital signs stable. Urinalysis appears to show UTI. Rocephin ordered for the patient. Patient was evaluated by Dr. Kelsey [facility] hospitalist team and patient will be admitted to his service. Impression & Plan Recurrent falls, Elevated troponin I level, Acute UTI Discharge Plan Visit Data Chief Complaint: Fall Stated Complaint: FALLEN 8 TIMES IN THE LAST 24 HOURS, NECK PAIN ED Provider: Jg Munson Discharge Problem: Recurrent falls, Elevated troponin I level, Acute UTI Patient Disposition: Being Evaluated by Hospitalist Forms Stand Alone Forms: My [facility] Prescriptions Prescriptions: No Action alendronate 70 mg tablet 70 mg PO WK Qty: 12 3RF Hold Instructions: per dentist d/t extraction and implants Rx Instructions: TAKE 1 TABLET WEEKLY WITH 8OZ OF WATER ON AN EMPTY STOMACH AND REMAIN UPRIGHT FOR AT LEAST 30 MINUTES Gemtesa 75 mg tablet 75 mg PO DAILY Qty: 90 3RF levothyroxine 125 mcg tablet 125 mcg PO DAILY Qty: 90 1RF nifedipine 30 mg tablet extended release 24hr 30 mg PO QAM Qty: 90 1RF Rx Instructions: TAKE 1 TABLET ONCE DAILY oxybutynin chloride 15 mg tablet extended release 24hr 15 mg PO QAM Qty: 90 1RF donepezil 5 mg tablet 5 mg PO QPM Qty: 90 1RF metformin 500 mg tablet extended release 24 hr 500 mg PO QAM Qty: 90 1RF furosemide 20 mg tablet 20 mg PO 3XWK Qty: 36 3RF aspirin 81 mg tablet,delayed release (DR/EC) 81 mg PO QAM cyanocobalamin (vitamin B-12) 500 mcg tablet,disintegrating 500 mcg SL QAM Qty: 30 magnesium oxide 400 mg (241.3 mg magnesium) tablet 400 mg PO QAM cholecalciferol (vitamin D3) 25 mcg (1,000 unit) capsule 1,000 unit PO QAM ziprasidone HCl 60 mg capsule 120 mg PO HS Qty: 90 3RF atorvastatin 10 mg tablet 10 mg PO DAILY divalproex 250 mg tablet extended release 24 hr 250 mg PO HS divalproex 500 mg tablet extended release 24 hr 1,000 mg PO HS calcium citrate 200 mg (950 mg) tablet 200 mg PO DAILY lisinopril 40 mg tablet 40 mg PO DAILY bupropion HCl 150 mg tablet sustained-release 12 hr 150 mg PO QAM Qty: 30 0RF Referrals Referrals: Ami Montana DO [Primary Care Provider] -
--- NOTE | 2024-06-25 08:26 | CT Scan Report ---
EXAM: CT head/brain wo con CLINICAL HISTORY: trauma, fall, posterior neck pain. TECHNIQUE: Axial non-contrast CT scan of the brain was performed from the skull base to the high parietal region. One of the following dose reduction techniques were utilized for this exam: Automated exposure control, adjustment of the mA and/or kV according to patient size, use of iterative reconstruction. COMPARISON: None. FINDINGS: No definite calvarium fractures. There are ill-defined hypodense areas noted in the subcortical white matter and the periventricular region bilaterally, suggestive of moderate microvascular ischemic changes. No established territorial infarction was identified. No evidence of intracerebral hemorrhage. No extra axial hematoma. No other focal parenchymal abnormalities are demonstrated. Keita-white matter differentiation is maintained. No midline shifts or deformity. The ventricular system, cortical sulci, and basal cisterns are prominent and consistent with senile changes. Normal CT appearance of the posterior fossa structures namely the cerebellar hemispheres, brainstem, and cerebellar peduncles. The cerebello-pontine angles are clear. The pituitary gland, the pineal gland, and the optic chiasm are unremarkable. IMPRESSION: 1. No fractures. 2. No brain hemorrhage. 3. Age-related brain involution with Moderate microvascular ischemic changes. Electronically signed by Jayme Olivera 06-25-2024 08:26 AM
--- NOTE | 2024-06-25 08:41 | XRay Report ---
EXAM: XR chest 1V portable CLINICAL HISTORY: TRAUMA -AMS TECHNIQUE: An X-ray image of the chest is obtained in 1 AP projection. COMPARISON: Previous study dated 06/24/2015. FINDINGS: Pulmonary Parenchyma: Prominent both hilar and bronchovascular marking, likely mild congestion. No evidence of consolidation, collapse, or focal opacities. No pulmonary nodules are identified. No evidence of pleural effusion or pleural thickening. Heart and Mediastinum: Heart size and shape are normal. No mediastinal widening or masses. No hilar or mediastinal lymphadenopathy. Bony Thorax: Bony thorax appears intact without fractures or deformities. Soft Tissues: Soft tissues overlying the chest wall are unremarkable. IMPRESSION: - Prominent both hilar and bronchovascular marking, likely mild congestion. Not presented in the old study provided. - No acute fractures. No pneumothorax. - No acute cardiopulmonary abnormalities are identified. Electronically signed by Jayme Olivera 06-25-2024 08:40 AM
--- NOTE | 2024-06-25 08:42 | CT Scan Report ---
EXAM: CT cervical spine wo con CLINICAL HISTORY: fall, trauma, posterior neck pain. TECHNIQUE: CT scan of the cervical spine was performed without the administration of intravenous contrast. Contiguous axial images were obtained from the skull base to the upper thoracic spine. Coronal and sagittal reformatted images were also reviewed. One of the following dose reduction techniques was utilized for this exam. Automated exposure control, adjustment of the mA and/or kV according to patient size, and use of iterative reconstruction. COMPARISON: None. FINDINGS: Straitening of the cervical spine, likely secondary to muscular spasms. No evidence of acute fracture or dislocation. The cortical and trabecular bone patterns are normal. No signs of lytic or sclerotic lesions. Mild to moderate spondylotic changes in the visualized spine with multilevel marginal bony hypertrophies, facet arthropathic changes, endplate changes, and reduced intervertebral disc spaces. Multilevel disc bony hypertrophy complexes in combination with facet arthropathic changes exert effects on the spinal canal and neural foraminal. Atlantoaxial degenerative changes. IMPRESSION: 1. No evidence of acute fracture or dislocation. 2. Mild to moderate spondylotic changes were noted. MRI of the cervical spine is advised if clinically indicated. Electronically signed by Jayme Olivera 06-25-2024 08:41 AM
--- NOTE | 2024-06-25 08:50 | XRay Report ---
EXAM: XR pelvis 1-2V routine CLINICAL HISTORY: Multiple followups tenderness to right posterior neck and weakness TECHNIQUE: X-ray images of the pelvis were obtained in anteroposterior (AP) projection. COMPARISON: No prior studies are available for comparison. FINDINGS: Bone Structure: Apparent shortening of right femoral neck, further evaluation is recommended after clinical correlation. Pelvic bones, including the iliac wings, ischium, pubis, and sacrum, are normal and intact. Hip Joints: Hip joints are normal with preserved joint spaces. No evidence of hip dislocation, subluxation, or significant degenerative changes. Acetabulum: Acetabular structures appear normal and intact. No signs of acetabular fracture or dysplasia. Symphysis Pubis: Symphysis pubis is normal and intact. No evidence of separation or widening. Sacroiliac Joints: Sacroiliac joints appear normal and unremarkable. No evidence of sacroiliitis or significant degenerative changes. Soft Tissues: Visualized soft tissues are normal and unremarkable. No soft tissue swelling, calcifications, or masses. Multiple phleboliths are seen in the pelvis. IMPRESSION: - Apparent shortening of right femoral neck, could be degenerative-related changes, however, further evaluation (right hip image) is recommended after clinical correlation. - No other significant abnormalities were noted. Disclaimer: A subtle bone abnormality or fracture may not be readily apparent on X-rays, thus clinical correlation and further imaging including follow-up CT, MRI, or follow-up X-rays are advised as needed. Electronically signed by Jayme Olivera 06-25-2024 08:49 AM
--- NOTE | 2024-06-25 08:54 | CT Scan Report ---
EXAM: CT abd pelvis IV con only CLINICAL HISTORY: fall, trauma, posterior neck pain. TECHNIQUE: Contrast-enhanced CT of the abdomen and pelvis was performed, with the following protocol: axial images with, and reconstructed coronal and sagittal images. 94ml Optiray 320 Intravenous contrast was administered. One of the following dose reduction techniques was utilized for this exam: Automated exposure control, adjustment of the mA and/or kV according to patient size, and use of iterative reconstruction. COMPARISON: 06/24/2015. FINDINGS: Abdomen: Liver: Normal in size, shape, and density. No focal lesions, cysts, or masses were identified. Hepatic vasculature and biliary ducts are unremarkable. Gallbladder and Biliary System: The gallbladder is normal in size and shape. No wall thickening, pericholecystic fluid, or gallstones were identified. The common bile duct is normal in caliber without dilation. Pancreas: Pancreatic head, body, and tail are visualized and appear normal in size and density. No pancreatic masses or calcifications were noted. The pancreatic duct is not dilated. Spleen: Normal in size, shape, and density. No splenic lesions or masses were identified. Kidneys and Adrenal Glands: Both kidneys are normal in size, shape, and position. Cortical thickness is within normal limits. No renal calculi. Bilateral mild smooth thickening of the pelvis and ureter wall thickening and adjacent fat stranding. Adrenal glands are unremarkable with no evidence of masses or hyperplasia. Pelvis: Urinary Bladder: Severe wall thickening and adjacent fat stranding suggest cystitis No intraluminal lesions identified. The uterus and adnexa: Unremarkable Rectum and Sigmoid Colon: Normal wall thickness and no evidence of mass. Peritoneal and Retroperitoneal Structures: No free fluid or abnormal fluid collections were identified within the abdomen or pelvis. No lymphadenopathy was noted. A moderate-size hiatal hernia was noted. Bowel: The visualized bowel loops are normal in caliber and appearance. No evidence of bowel obstruction or wall thickening. Bones and Soft Tissues: No fractures or abnormal masses were identified. Spondylotic changes in the lumbar spine with multilevel marginal bony hypertrophies, facet arthropathic changes, endplate changes, and reduced intervertebral disc spaces. Bilateral mild pleural effusion was noted. Moderate cardiomegaly IMPRESSION: 1. No fractures or abnormal masses were identified. moderate Spondylotic changes in the lumbar spine. 2. Severe UB wall thickening and adjacent fat stranding suggest cystitis, Bilateral mild smooth thickening of the pelvis, and ureter wall thickening and adjacent fat stranding suggest infection. 3. Bilateral mild pleural effusion was noted. 4. Moderate cardiomegaly. 5. A moderate-size hiatal hernia was noted. Electronically signed by Jayme Olivera 06-25-2024 08:53 AM
[2024-06-25 09:38] LABS: Influenza A virus by PCR Negative (Neg); Influenza B virus by PCR Negative (Neg); RSV by PCR Negative (Neg); SARS CoV2 RNA(COVID-19) Ceph NEGATIVE (Negative)
--- NOTE | 2024-06-25 09:52 | XRay Report ---
XR hip RT min 2V CLINICAL HISTORY: Fall. COMPARISON: Pelvis radiograph and CT of the abdomen and pelvis performed earlier today. FINDINGS: Alignment of the right hip is anatomic. There are no fractures within the right hip. There are no osseous lesions. Incidental note is made of contrast within the bladder from recent contrast enhanced CT. Bladder wall thickening and irregularity is better depicted on CT. There is moderate rig ht hip joint space narrowing with osteophytosis. IMPRESSION: No fractures within the right hip. ACT 112: Negative or not required by law. Electronically signed by: Sergio De Los Santos M.D. 06/25/2024 9:51 AM
--- NOTE | 2024-06-25 09:54 | XRay Report ---
XR femur RT 2V routine CLINICAL HISTORY: fall COMPARISON: Right knee radiographs March 10, 2019. Pelvis radiograph performed earlier today. FINDINGS: Incidental note is made of contrast within the bladder from recent CT. There are no fractu res within the right femur. There is moderate right hip joint space narrowing with osteophytosis. The re is also moderate to severe right knee osteoarthritis. A small right knee joint effusion is present . IMPRESSION: 1. No fractures within the right femur. 2. Small right knee joint effusion. 3. Moderate to severe right knee osteoarthritis. 4. Moderate right hip osteoarthritis. ACT 112: Negative or not required by law. Electronically signed by: Sergio De Los Santos M.D. 06/25/2024 9:52 AM
--- NOTE | 2024-06-25 10:09 | History & Physical Report ---
Date of Service June 25, 2024 Assessment & Plan (1) Recurrent falls: Plan: Uses walker at baseline with assistance from Hospitalized with [facility] due to fall - had 2 weeks of rehab after weakness and confusion x1 day Hip XR, femur XR, pelvis XR, head CT, CXR negative for acute changes - small right knee joint effusion, moderate/severe right knee OA, moderate right hip OA - mild cardiomegaly - cervical spine CT mild to moderate spondylitic changes; MRI of cervical spine advised if clinically indicated - Covid/flu/RSV negative - UA with straight cath ordered; recent UTI treated with cefdinir recent hospitalization - recent TSH WNL - CK ordered - valproic acid mildly elevated at 113 - will decrease divalproex [id number] HS -> 1000 HS - PT/OT consulted - CM consulted - fall and aspiration precautions decreased PO intake - Cr mildly elevated (0.87 -> 1.25) - will order gentle resuscitation with 1 L NSS (2) Urge incontinence of urine: Plan: suspect recurrent UTI contributing to weakness recent UTI treated with cefdinir - culture showed 3 organisms present, no further identification/sensitivity AP CT showing possible cystitis UA with straight cath ordered will order wyman continue oxybutynin and vibegron (3) Dementia: Plan: with schizophrenia and bipolar disorder head CT showing age-related brain involution with moderate microvascular ischemic changes Patient assessment and stated ziprasidone decreased from 120 HS to 100 HS; continue decrease divalproex with elevated valproic acid as above continue donepezil and bupropion (4) Diabetes: Plan: Controlled on metformin at home; held - Most recent A1C 5.6 - defer SSI at this time - T2DM diet (5) Elevated troponin: Plan: 19.5 trend trop EKG ordered denies cp monitor on tele Plan Patient is a 74-year-old female with history of recent fall requiring hospitalization for short-term rehab, dementia, schizophrenia, bipolar disorder. Was treated for UTI during recent hospitalization with cefdinir. Presents this admission due to weakness and confusion suspected from UTI, UA ordered. Suspect intermediate care placement as patient's with difficulty caring for her at home. Chronic stable diagnoses: HLD - continue statin hypothyroidism - continue levothyroxine HTN - holding lisinopril; continue Procardia edema - hold lasix with renal function worsened; TEDs ordered VTE ppx: SCDs and TEDs Diet: T2DM Dispo: PCU Admission and Anticipated Discharge Date Admission Date: 06/25/23 History of Present Illness Chief Complaint: fall Primary Care Provider: Ami Montana DO Patient is a 74-year-old female with a past medical history of urinary incontinence, TIA, lower extremity edema, hypothyroidism, hyperlipidemia, dementia, schizophrenia, bipolar disorder. She was at [facility] from 05/16 to 05/19 after a fall, she was treated for UTI with cefdinir, and stated her bupropion was decreased from 400-150 Mg. she went to rehab for approximately 2 weeks after this and her stated that she was doing that. They went to [place] to visit family for [place] and all seem to develop flulike symptoms/vomiting for few days. This has since resolved. She has been doing well at home until yesterday when she could not get out of bed. She had extreme weakness and when her tried to help her to the bathroom she lost strength in her legs and he slowly lowered her to the floor. she has not been eating or drinking much for the past few days. He also noted that her tremor is worse; progressing from just her arms to now her head. He stated that her PCP decreased her Geodon from 60 Mg 2 tabs HS to 60+40 HS. When she was at [place] this medication twice daily instead of just at bedtime and she became extremely tired and slept all day. She stated that she was complaining of some burning with urination a couple days ago and he gave her cranberry and urinary relief medication. The symptoms have since resolved. He also noted that she has been confused for the past few days. She is continue to take Lasix Thursday and Thursday for lower extremity edema, but has been acutely worsened since discharge from recent hospitalization. Transitional care notes noted that she was to discontinue Lasix and Ramipril her stated he was never told this and she has still been taking them. Patient denies fever, chills, headache, dizziness, lightheadedness, dyspnea, chest pain, vomiting, dysuria, hematuria. She has healing ecchymosis to right forehead and left neck after fall 05/16 in which she hit her head off the shower. Her takes care of her at home. She does not use oxygen at baseline; on 2 L O2 nasal cannula on admission. She did not get her home medications this morning. She has a living will stating DNR/DNI status. Allergies Allergy/AdvReac Type Severity Reaction Status Date / Time topiramate AdvReac Intermediate CONFUSION Verified 06/13/24 10:20 Home Medications Medication Instructions Recorded Confirmed Type aspirin 81 mg tablet,delayed 81 mg PO QAM 11/29/18 06/25/24 History release cyanocobalamin (vitamin B-12) 500 500 mcg sublingual QAM #30 tabs 12/01/18 06/25/24 History mcg disintegrating tablet,sublingual magnesium oxide 400 mg (241.3 mg 400 mg PO QAM 12/01/18 06/25/24 History magnesium) tablet ziprasidone HCl 60 mg capsule 120 mg (2 x 60 mg) PO HS #90 caps 12/08/18 06/25/24 Rx alendronate 70 mg tablet 70 mg PO WK #12 tabs 12/04/22 06/25/24 Rx vibegron 75 mg tablet (Gemtesa) 75 mg PO DAILY #90 tabs 09/23/23 06/25/24 Rx levothyroxine 125 mcg tablet 125 mcg PO DAILY #90 tabs 01/04/24 06/25/24 Rx nifedipine 30 mg tablet,extended 30 mg PO QAM #90 tabs 01/04/24 06/25/24 Rx release 24 hr oxybutynin chloride 15 mg 15 mg PO QAM #90 tabs 01/04/24 06/25/24 Rx tablet,extended release 24 hr donepezil 5 mg tablet 5 mg PO QPM #90 tabs 03/23/24 06/25/24 Rx metformin 500 mg tablet,extended 500 mg PO QAM #90 tabs 03/23/24 06/25/24 Rx release 24 hr atorvastatin 10 mg tablet 10 mg PO DAILY 06/13/24 06/25/24 History bupropion HCl 150 mg tablet,12 hr 150 mg PO QAM #30 ea 06/13/24 06/25/24 Rx sustained-release calcium citrate 200 mg PO DAILY 06/13/24 06/25/24 History cholecalciferol (vitamin D3) 25 1,000 unit PO QAM 06/13/24 06/25/24 History mcg (1,000 unit) capsule divalproex 250 mg tablet,extended 250 mg PO HS 06/13/24 06/25/24 History release 24 hr divalproex 500 mg tablet,extended 1,000 mg PO HS 06/13/24 06/25/24 History release 24 hr lisinopril 40 mg tablet 40 mg PO DAILY 06/13/24 06/25/24 History furosemide 20 mg tablet 20 mg PO 3XWK #36 tabs 06/17/24 06/25/24 Rx Past Med/Surg History Problem List (Updated 06/25/24 @ 11:05 by Yasmeen Walker PA-C) Elevated troponin Elevated troponin I level (Acute) Recurrent falls (Acute) History of colon polyps Personal history of fall (Acute) Metabolic syndrome Osteopenia Spleen anomaly Generalized weakness Bilateral lower extremity edema CKD stage 3 due to type 2 diabetes mellitus Arthritis (Acute) osteoarthritis Dementia (Acute) Diabetes (Acute) NIDDM Hyperlipidemia (Acute) Hypertension (Acute) Hypomagnesemia (Acute) Hyponatremia (Acute) Hypothyroidism (Acute) Morbid obesity (Acute) BMI 43.9 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 5yrs ago--no deficits--followed with Dr. Serrano (was cleared by neurologist) Edema Leg weakness High cholesterol Surgical History H/O tooth extraction 02/16/23 History of colonoscopy History of wisdom tooth extraction H/O dilation and curettage S/P thyroid surgery partial thyroidectomy (suspected cancer but was found to be benign) @ [facility] History of bilateral cataract extraction Family History Aunt Breast cancer Grandmother (Maternal) Breast cancer Mother Diabetes Cardiac disorder Kidney disease Myocardial infarction Congenital kidney disease Hypertension Father Alcohol abuse Bipolar disorder Cardiac disorder Myocardial infarction Seizure Hypertension Sister Diabetes Other No family history of adverse response to anesthesia Denies family history of Ovarian cancer Prostate cancer Colorectal cancer Social History Smoking Status: Never smoker Second Hand Exposure: No; Do You Dip or Chew Tobacco: No; Hx Alcohol Use: No Hx Substance Use: No Preferred Language: Serbian Communication Ability: Effective Visual Impairment: Limited Hearing Ability: Use of Hearing Aid Piccolo Mechanic Required: No Beliefs That Will Affect Care: None marital status: Current Living Situation: Spouse current occupational status: retired How many Children do You have: 3 Feels Safe at Home: Yes Childhood Exposure to Second-Hand Smoke: No Diet: regular Diet Comment: Sees Nutrionist caffeine: Yes during the past year weight has: remained stable Dental Care, Regularly: No Physical Activity Frequency: Does not Exercise Seatbelt Use: always Sunscreen Use: No Do you think of yourself as: straight/heterosexual Gender Identity: Female Assistive Devices: Glasses, Hearing Aid - Bilateral, Walker and Wheelchair Review of Systems Review of Systems: see HPI Physical Exam Physical Exam: The patient is awake, alert and oriented 3, well developed and well nourished, normocephalic, in no acute distress. Non-toxic appearing. Tremor of BL arms and head. HEENT- EOMI, mucous membranes dry. Hearing grossly intact. Healing bruise to right forehead. Heart-normal S1 and S2.No murmurs, rubs or gallops. Lungs-clear bilaterally, no respiratory distress, no accessory muscle use. Abdomen-normal bowel sounds and soft. No ascites noted. Non-tender. Extremities- no clubbing, cyanosis, or edema. Rheumatologic-normal range of motion. Psychiatric-normal affect. Results & Data Results & Data Vital Signs (Past 12 Hours) Vital Signs Temp Pulse Resp BP Pulse Ox O2 Del Method 06/25/24 08:36 80 22 100 06/25/24 08:00 73 22 98 06/25/24 07:11 152/68 H 06/25/24 07:09 74 18 93 06/25/24 06:02 37.4 C 74 19 104/56 L 94 Room Air 06/25/24 05:59 74 Laboratory Results Reviewed CBC, CMP, Mg, troponin, valproic acid level Diagnostic Findings reviewed hip XR, femur XR, A/P CT, pelvis XR, head CT, CXR, cervical spine CT ECG Additional Comments: ordered Code Status & VTE Plan Code Status DNR/DNI VTE Prophylaxis Plan VTE Prophylaxis will be ordered: Yes Supervising Physician Co-Signing Physician Notes I have personally seen, evaluated and examined the patient. I have also personally discussed the management of the patient with the resident physician/RACHEAL and I agree with the exam findings documented in the history and physical examination and the documented assessment and plan unless otherwise stated below. Brief Exam: In general very pleasant 74-year-old female is alert and oriented to person at the time my exam I suspect this is her baseline. Accompanied by her who provides most of the above history as outlined. The patient has no specific complaints. Patient's reports she really had no p.o. intake at all yesterday. Straight cath was performed was in the room the patient has very purulent brown thick urine. Suspect UTI. Given the YISEL and the appearance of the urine will leave a Wyman catheter in place for now. Will hydrate the patient with a liter of saline to start with and monitor her creatinine. HEENT: Normocephalic atraumatic. Mucous membranes are significantly dry. The patient does follow commands she sticks her tongue out on command and squeezes hands and moves feet on command. Heart: Fairly regular to appreciate any carol murmur. Lungs: Diminished due to poor inspiratory effort but clear. Abdomen: Obese soft appears nontender remaining abdominal exam is somewhat equivocal given her body habitus. Extremities: Intact with no significant edema. Neurologically: She has no focal deficit on exam she does have tremors of the torso head and upper extremities which is chronic for her and worse recently per the . Assessment/plan: As discussed above. We have a CK total pending if it is elevated we will continue further IV fluids beyond the 1 L we have ordered. Will trend her troponins. If they remain flat we will just monitor if they increase of course we will address as appropriate. Will await the urinalysis to officially start the patient on antibiotics but I do suspect that her urine is going to be infected. We have consulted case management and physical therapy. I do suspect this patient is going to need longer term placement. The patient's is debilitated at his baseline he ambulates with a cane and the patient's body habitus and debility appears to be coming too much of a burden for the patient's despite his best efforts to manage at home well. In addition her valproic acid level is mildly elevated probably from her acute kidney injury. She is on 1250 mg of valproic acid at home will decrease to 1000 mg currently. Will hold her CANDE inhibitor as well as her metformin given her YISEL. In terms of her diabetes. We have ordered Accu-Cheks before meals and at bedtime to be notified if less than 80 or greater than 180. If she should fall outside these parameters we will institute a sliding scale PG Care Time/CCT Total # of Minutes Spent Total Time Spent with Patient: Total time spent is greater than 50% in coordination of care (as documented) at patient's floor/unit and/or counseling patient: Coding Level of Care Code 42992 INT INP/OBS CARE 75MIN Diagnoses Recurrent falls R29.6 Urge incontinence of urine N39.41 Dementia F03.90 Diabetes E11.9 Diabetes mellitus intermediate designer insulin use: without intermediate use Diabetes mellitus type: type 2 Elevated troponin R79.89 (4) Diabetes Diabetes mellitus intermediate designer insulin use: without intermediate use Diabetes mellitus type: type 2
[2024-06-25] MEDS ORDERED: ONDANSETRON INJ 2 MG/ML 2 ML VIAL IV PRN (10:24)
[2024-06-25 11:13] LABS: Appearance Urine Cloudy (Clear); Bilirubin Urine Negative (Negative); Blood Urine 3+ (Negative); Color Urine Yellow; Glucose Urine UA Negative (Negative); Ketones Urine Trace (Negative); Leukocyte Esterase Urine 1+ (Negative); Nitrite Urine Positive (Negative); Protein Urine 3+ (Negative); Specific Gravity Urine 1.015 (1.000-1.030); Urobilinogen Urine Negative (Negative)
[2024-06-25 11:16] LABS: Bacteria Urine 3+ (None Seen); Epithelial Cell Urine 0-2 /hpf (0-2); RBC Urine >20 /hpf (0-2); WBC Urine >50 /hpf (0-5)
--- NOTE | 2024-06-25 11:24 | Communication Note ---
Date of Service: June 25, 2024 UA resulted: glucose protein, trace ketones, 3+ blood, positive nitrates, 1+ leukocyte Esterase, > 20 RBC, > 50 WBC, 3+ bacteria - appears infectious. Will start Rocephin cultures pending
[2024-06-25] MEDS: SODIUM CHLORIDE 0.9% 1,000 ML IV SCH (11:35)
[2024-06-25] MEDS: cefTRIAXone SODIUM 2,000 MG/50 ML BAG IV STA (11:37)
[2024-06-25 11:43] LABS: Troponin I High Sensitivity 9.6 pg/ml (0-14)
[2024-06-25] MEDS: OXYBUTYNIN CHLORIDE XL 5 MG TABCR PO SCH (12:14)
[2024-06-25] MEDS: VIBEGRON 75 MG TAB PO SCH (12:14)
[2024-06-25] MEDS: NIFEdipine EXTENDED REL 30 MG TABCR PO SCH (12:15)
[2024-06-25] MEDS: buPROPion SR 150 MG TABCR PO SCH (12:16)
[2024-06-25] MEDS: ATORVASTATIN 10 MG TAB PO SCH (12:16)
[2024-06-25] MEDS: ASPIRIN 81 MG ECTAB PO SCH (12:17)
[2024-06-25] MEDS: LEVOTHYROXINE SODIUM 125 MCG TABLET PO SCH (12:17)
[2024-06-25] MEDS: DIVALPROEX EXTENDED RELEASE 500 MG TAB PO SCH (21:01)
[2024-06-25] MEDS: DONEPEZIL HCL 5 MG TAB PO SCH (21:01)
[2024-06-26 07:17] LABS: Estimated Average Glucose 117 mg/dl; Hemoglobin A1C 5.7 % (4.5-5.6)
[2024-06-26 07:28] LABS: Albumin Globulin Ratio 0.8 (0.9-2); Albumin Level 2.3 gm/dl (3.4-5.0); BUN Creatinine Ratio 19.8 (10-20); Bilirubin,Total 0.2 mg/dl (0.2-1.0); Calcium 7.6 mg/dl (8.6-10.3); Chol HDL Ratio 2.6 (0-5); Globulin 2.8 gm/dl (2.5-4.0); Total Protein 5.1 gm/dl (6.0-8.3)
[2024-06-26 07:41] LABS: Thyroid Stimulating Hormone 1.804 uIu/ml (0.300-4.500)
[2024-06-26 07:48] LABS: Basophils # (auto) 0.01 K/uL (0.00-0.20); Basophils % (auto) 0.1 %; Hematocrit (blood only) 30.4 % (37.0-47.0); Immature Granulocytes # (auto) 0.03 K/uL (0.01-0.20); Immature Granulocytes % (auto) 0.4 %; Lymphocytes # (auto) 1.54 K/uL (1.20-3.40); Lymphocytes % (auto) 19.2 %; Mean Corpuscular Hemoglobin 30.9 pg (25.0-34.0); Mean Corpuscular Hgb Conc 32.9 g/dL (32.0-36.0); Mean Corpuscular Volume 93.8 fL (80.0-100.0); Mean Platelet Volume 12.9 fL (9.4-12.4); Monocytes # (auto) 1.57 K/uL (0.11-0.59); Monocytes % (auto) 19.6 %; Neutrophils # (auto) 4.88 K/uL (1.40-6.50); Neutrophils % (auto) 60.7 %; Platelet Count 165 K/uL (130-400); RDW Coefficient of Variation 14.8 % (11.5-14.5); RDW Standard Deviation 51.4 fL (36.4-46.3); Red Blood Count 3.24 M/uL (4.20-5.40); White Blood Count 8.03 K/ul (4.8-10.8)
--- NOTE | 2024-06-26 08:21 | Hospitalist Progress Note ---
Date of Service June 26, 2024 Assessment & Plan (1) Elevated troponin: (2) Acute UTI: (3) Recurrent falls: (4) History of colon polyps: (5) Generalized weakness: (6) Hyperlipidemia: (7) Hypertension: (8) Diabetes: (9) Hypothyroidism: (10) Neuroleptic-induced Parkinsonism: (11) Morbid obesity: Plan 74 Y O Female with PMH of dementia, Hyperlipidemia, Hypertension, DM II, Hypothyroidism presented to ER with recurrent falls and feeling very weak, burning with urination (1) Recurrent falls: -Uses walker at baseline with assistance from -Hospitalized with [facility] due to fall 05/16 - had 2 weeks of rehab after weakness and confusion x1 day -Hip XR, femur XR, pelvis XR, head CT, CXR negative for acute changes - small right knee joint effusion, moderate/severe right knee OA, moderate right hip OA -CT Abdomen and Pelvis shows no fracture or abnormal masses, moderate cardiomegaly, mild bilateral pleural effusion and possible cystitis. - cervical spine CT mild to moderate spondylitic changes - Covid/flu/RSV negative - recent TSH WNL - Creatine Kinase: 43 - valproic acid mildly elevated at 113 -Decrease divalproex 88165 HS -> 1000 HS - PT/OT consultation pending - CM consulted - fall and aspiration precautions -Creatinine: 0.87>1.25>1.21 - Encourage drinking a lot of fluid(50 to 6o ounces a day) (2) Urinary Tract Infections -suspect recurrent UTI contributing to weakness -recent UTI treated with cefdinir - culture showed 3 organisms present, no further identification/sensitivity -AP CT showing possible cystitis -UA with straight cath . Urine RBC>20 ; Urine WBC>50, Bacteria 3+ - Urine culture(06/26) shows Escherichia Coli 100,000 CFU; Sensitivity to follow - Ceftriaxone 2 gm Q24H -Under [place] -continue home meds oxybutynin and vibegron (3) Dementia: -with schizophrenia and bipolar disorder -head CT showing age-related brain involution with moderate microvascular ische jj changes -Patient assessment and stated ziprasidone decreased from 120 HS to 100 HS; continue -decrease divalproex with elevated valproic acid as above -continue donepezil and bupropion (4) Diabetes: -Controlled on metformin at home; held - glucose: 104>80 ;Most recent A1C 5.6 - defer SSI at this time - T2DM diet (5) Elevated troponin: -19.5 >14.5 -Denies chest pain -EKG: Normal Sinus Rhythm, No evidence of ischemia -Continue to monitor patient on telemetry VTE ppx: SCDs and TEDs Diet: T2DM Dispo: PCU Admission and Anticipated Discharge Date Admission Date: June 25, 2024 Supervising Physician Co-Signing Physician Notes I personally examined the patient and verified all briceno points of history and exam, discussed case, and agree with decision making with Dr Rizzo seems to be feeling a bit better. Extensive discussion with patient and family. Answered all questions to the best my ability and to their satisfaction. Vitals noted, in general she is awake but fatigued does not talk much but is oriented, no distress. Breathing unlabored no accessory muscle use good effort. Skin shows no rashes no pallor or icterus. Bilateral lower extremity edema noted. Labs and diagnostics noted. Weaknessappears to be multifactorial between urinary tract infection, de hydration, and polypharmacy. PT/OT eval and treat, may need rehab. Urinary tract infectiondysuria noted prior to admission. Continue ceftriaxone pending culture. Follow symptoms dehydrationhad viral enteritis a few weeks ago, and was not certain what he was/was not supposed to be doing with her Lasix so they given it to sudhir noted that whenever she was discharged from the hospital before it had been held; daughter clearly notes no prior CHF history and it sounds like she was on the Lasix for venous stasis. Discussed risk/benefit of this combined with current dehydration/mild AKIDC Lasix entirely. Discussed better management of venous stasis. Follow basic metabolic panel. Follow p.o. intake. Polypharmacyin discussion with the family the seems to be a very difficult balance due to her schizophrenia/bipolarthey agree with the overall philosophy of trying to minimize any sedating medications she does not need, while at the same time recalling different situations where she had gotten worsening hallucinations/etc.and note that while the Geodon is probably fairly sedating, at the same time they have found it to be the most helpful with her schizophren ia. Right now we have reduced her Depakote to 1000 mg at bedtime. Would continue with very slow dose reductions of medications, probably leaving the Geodon alone, and slowly over time trying to titrate down her medications to the least necessary. otherwise as above Subjective Patient is feeling a lot better today with mild tiredness and no frequency of urination and burning micturition. Review of Systems Review of Systems: see HPI Physical Exam Physical Exam: The patient is awake, alert and oriented 3, well developed and well nourished, normocephalic, in no acute distress. Non-toxic appearing. Tremor of BL arms and head. HEENT- EOMI, mucous membranes dry. Hearing grossly intact. Healing bruise to right forehead. Heart-normal S1 and S2.No murmurs, rubs or gallops. Lungs-clear bilaterally, no respiratory distress, no accessory muscle use. Abdomen-normal bowel sounds and soft. No ascites noted. Non-tender. Extremities- no clubbing, cyanosis, or edema. Rheumatologic-normal range of motion. Psychiatric-normal affect. Results & Data Results & Data Vital Signs (Past 12 Hours) Vital Signs Temp Pulse Pulse Resp BP Pulse Ox O2 Del Method 06/26/24 07:38 60 06/26/24 07:10 36.7 C 58 L 17 99/63 L 94 Room Air 06/26/24 04:12 37 C 62 22 109/70 93 Nasal Cannula 06/26/24 01:31 65 06/26/24 01:03 Nasal Cannula 06/26/24 00:23 67 18 108/62 94 Nasal Cannula 06/26/24 00:05 64 16 124/53 L 96 Room Air 06/25/24 22:56 62 06/25/24 20:34 67 31 H 119/49 L 98 Room Air O2 Flow Rate 06/26/24 07:38 06/26/24 07:10 06/26/24 04:12 3 06/26/24 01:31 06/26/24 01:03 3 06/26/24 00:23 3 06/26/24 00:05 06/25/24 22:56 06/25/24 20:34 (6) Hyperlipidemia Hyperlipidemia type: pure hypercholesterolemia Qualified Code(s): E78.00 - Pure hypercholesterolemia, unspecified (7) Hypertension Hypertension type: primary hypertension Qualified Code(s): I10 - Essential (primary) hypertension (8) Diabetes Diabetes mellitus mcc insulin use: without mcc use Diabetes mellitus type: type 2
[2024-06-26] MEDS: CALCIUM CITRATE 950 MG TAB PO SCH (09:37)
[2024-06-26] MEDS: MAGNESIUM OXIDE 400 MG TAB PO SCH (09:43)
[2024-06-26] MEDS: cefTRIAXone SODIUM 2,000 MG/50 ML BAG IV SCH (10:15)
[2024-06-26] MEDS ORDERED: cefTRIAXone SODIUM 350 MG/ML IM IM ONE (11:21)
--- NOTE | 2024-06-26 17:24 | Billing Data ---
Date of Service June 26, 2024 Coding Level of Care Code 77933 SUB INP/OBS CARE MIN
--- NOTE | 2024-06-27 06:53 | Hospitalist Progress Note ---
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 -Uses walker at baseline with assistance from -Hospitalized with Amaya Hyman 2 weeks ago-- sent to rehab -Trauma Imging: no evidence of injury -CT AP: moderate cardiomegaly, mild bilateral pleural effusion and possible cystitis. - valproic acid mildly elevated at 113 -Decrease divalproex [id number] HS -> 1000 HS - PT/OT consult: Recs Rehabs - Both and Shaista prefer [place] for rehab - Fall and aspiration precautions #Urinary Tract Infections - E coli almost pansensitive. - AP CT showing possible cystitis - Ceftriaxone 2 gm, D2 completed this AM. Changed to Nitrofurantoin. #Urge Incontinence -Under [facility] -continue home Meds oxybutynin and vibegron. Has not followed up with Uro for 2 years now. #Dementia: Baseline dementia -CT head: age-related brain involution with moderate microvascular ischemic changes -Patient assessment and stated ziprasidone decreased from 120 HS to 100 HS; continue -decrease divalproex with elevated valproic acid as above -continue donepezi #Schizoaffective disorder and bipolar disorder Stable with medication now H/O hallucinations on lowering med dose in past. Under Ziprasidone 120 mg PO HS. Continue Bupropion and #Diabetes: -Controlled on metformin at home; held -Most recent A1C 5.6 -Defer SSI at this time; T2DM diet #Elevated troponin: -19.5 >14.5 -Denies chest pain -EKG: Normal Sinus Rhythm, No evidence of ischemia -Continue to monitor patient on telemetry # O2 since admission No chronic lung disease. Lung sounds ok. on low flow 2 L/min; wean off and see. VTE ppx: SCDs and TEDs Diet: T2DM Dispo: PCU telemetry Admission and Anticipated Discharge Date Admission Date: June 25, 2024 Supervising Physician Co-Signing Physician Notes Attending Physician Supervision Note: I independently interviewed and examined the patient and verified the briceno history and physical, reviewed labs and image studies and agree with findings and care plan noted above. Sleeping when visited. at bedside. Vitals reviewed. No resp distress. Sleeping comfortably. Weaknessappears to be multifactorial between urinary tract infection, dehydration, and polypharmacy. PT/OT eval and treat, may need rehab. UTI dysuria noted prior to admission. Continue ceftriaxone. E coli - sensitive. dehydrationhad viral enteritis a few weeks ago, now resolved. Venous stasis- d/c lasix. to work with stockings. (no h/o CHF) Polypharmacy very difficult balance due to her schizophrenia/bipolar Attempting to wean medications from outpatient with decreased in wellbutrin which she tolerated. -with elevated dep level this admission - dose decreased. consider further reduction in dose on discharge. -continue Geodon as is - hasn't tolerated weaning by psychiatry provider preadmission. Otherwise as above Subjective Shaista says she feels Constipated, had her BM 3 days back. Leg compression device hurts as well. Feels overall better than before though. Oriented to Time place and person. She mentioned that she was previously in rehab, got home for 2 weeks and Was not on O2 before, No dx of COPD, no inhaler use per patient. Told name is alyssa, ans will be here afternoon. Review of Systems Review of Systems: As per HPI Physical Exam Physical Exam: Constitutional: Well appearing, No acute distress, PILCCOD: Negative HEENT: Atraumatic, Normocephalic, No conjunctival injection CVS: S1 S2 no murmur, Regular Rhythm, no LE edema Respiratory: BL equal air entry with NVBS. No rhonchi, wheezes, or crackles. No increased work of breathing GI: Soft, Nondistended, Nontender, Normal Bowel sounds + MSK: No gross deformities noted Skin: Warm, Dry, No rashes Neuro: Alert, Oriented to TPP, No Focal deficit Psych: Mood and Affect congruent, Cooperative on exam Results & Data Results & Data Vital Signs (Past 12 Hours) Vital Signs Temp Pulse Resp BP Pulse Ox O2 Del Method O2 Flow Rate 06/26/24 20:33 Nasal Cannula 2 06/26/24 20:10 36.9 C 69 18 110/66 95 Nasal Cannula 2 Resident Activity Tracking Resident Involvement: Resident Care Provided Care Provided: Adult Hospital Medicine (6) Hyperlipidemia Hyperlipidemia type: pure hypercholesterolemia Qualified Code(s): E78.00 - Pure hypercholesterolemia, unspecified (7) Hypertension Hypertension type: primary hypertension Qualified Code(s): I10 - Essential (primary) hypertension (8) Diabetes Diabetes mellitus extermination supervisor insulin use: without extermination supervisor use Diabetes mellitus type: type 2
[2024-06-27] MEDS: CYANOCOBALAMIN (B-12) 500 MCG TABLET PO SCH (08:01)
[2024-06-27 08:35] LABS: Basophils # (auto) 0.01 K/uL (0.00-0.20); Basophils % (auto) 0.2 %; Eosinophils # (auto) 0.02 K/uL (0.00-0.50); Eosinophils % (auto) 0.3 %; Hematocrit (blood only) 30.4 % (37.0-47.0); Hemoglobin 10.2 g/dl (12.0-16.0); Immature Granulocytes # (auto) 0.03 K/uL (0.01-0.20); Immature Granulocytes % (auto) 0.5 %; Lymphocytes # (auto) 0.96 K/uL (1.20-3.40); Lymphocytes % (auto) 14.5 %; Mean Corpuscular Hemoglobin 30.8 pg (25.0-34.0); Mean Corpuscular Hgb Conc 33.6 g/dL (32.0-36.0); Mean Corpuscular Volume 91.8 fL (80.0-100.0); Mean Platelet Volume 12.5 fL (9.4-12.4); Monocytes # (auto) 1.27 K/uL (0.11-0.59); Monocytes % (auto) 19.2 %; Neutrophils # (auto) 4.31 K/uL (1.40-6.50); Neutrophils % (auto) 65.3 %; Platelet Count 176 K/uL (130-400); RDW Coefficient of Variation 14.4 % (11.5-14.5); RDW Standard Deviation 48.8 fL (36.4-46.3); Red Blood Count 3.31 M/uL (4.20-5.40)
[2024-06-27 08:51] LABS: Albumin Globulin Ratio 0.8 (0.9-2); Albumin Level 2.4 gm/dl (3.4-5.0); Bilirubin,Total 0.2 mg/dl (0.2-1.0); Globulin 3.1 gm/dl (2.5-4.0); Total Protein 5.5 gm/dl (6.0-8.3)
[2024-06-27] MEDS: NITROFURANTOIN MONOHYDRATE 100 MG CAP PO SCH (11:19)
[2024-06-27 12:05] LABS: BUN Creatinine Ratio 22.2 (10-20); Calcium 7.9 mg/dl (8.6-10.3); Creatinine Clr Calc Pharmacy 54.9 ml/min; Potassium 4.3 mmol/L (3.5-5.1)
--- NOTE | 2024-06-27 15:14 | Electrocardiogram Report ---
Test Reason : Blood Pressure : */* mmHG Vent. Rate : 75 BPM Atrial Rate : 75 BPM P-R Int : 144 ms QRS Dur : 78 ms QT Int : 384 ms P-R-T Axes : 57 7 32 degrees QTcB Int : 428 ms Normal sinus rhythm Nonspecific T wave abnormality Abnormal ECG When compared with ECG of 24-Jun-2015 19:48, No significant change was found Confirmed by Aaron Haider ([id number]) on 06/27/2024 3:14:07 PM Referred By: REFERRED SELF Confirmed By: Aarno Haider
[2024-06-27] MEDS: ACETAMINOPHEN 325 MG TAB PO PRN (20:30)
[2024-06-28 08:29] LABS: Basophils # (auto) 0.02 K/uL (0.00-0.20); Basophils % (auto) 0.4 %; Eosinophils # (auto) 0.02 K/uL (0.00-0.50); Eosinophils % (auto) 0.4 %; Hematocrit (blood only) 31.4 % (37.0-47.0); Hemoglobin 10.4 g/dl (12.0-16.0); Immature Granulocytes # (auto) 0.03 K/uL (0.01-0.20); Immature Granulocytes % (auto) 0.5 %; Lymphocytes # (auto) 1.08 K/uL (1.20-3.40); Lymphocytes % (auto) 19.4 %; Mean Corpuscular Hemoglobin 30.6 pg (25.0-34.0); Mean Corpuscular Hgb Conc 33.1 g/dL (32.0-36.0); Mean Corpuscular Volume 92.4 fL (80.0-100.0); Mean Platelet Volume 12.8 fL (9.4-12.4); Monocytes # (auto) 1.01 K/uL (0.11-0.59); Monocytes % (auto) 18.1 %; Neutrophils # (auto) 3.42 K/uL (1.40-6.50); Neutrophils % (auto) 61.2 %; Platelet Count 179 K/uL (130-400); RDW Coefficient of Variation 14.2 % (11.5-14.5); RDW Standard Deviation 48.2 fL (36.4-46.3); White Blood Count 5.58 K/ul (4.8-10.8)
[2024-06-28 08:31] LABS: BUN Creatinine Ratio 20.2 (10-20); Calcium 8.2 mg/dl (8.6-10.3); Creatinine Clr Calc Pharmacy 60.3 ml/min; Potassium 4.3 mmol/L (3.5-5.1)
--- NOTE | 2024-06-28 09:47 | Hospitalist Progress Note ---
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 -Uses walker at baseline with assistance from -Hospitalized with Amaya Hyman 2 weeks ago-- sent to rehab -Trauma Imaging: no evidence of injury -CT AP: moderate cardiomegaly, mild bilateral pleural effusion and possible cystitis. - valproic acid mildly elevated at 113 -Decrease divalproex 58170 HS -> 1000 HS - PT/OT consult: Recs Rehabs #Urinary Tract Infections - E coli - Abx D4; Nitrofurantoin D2. #Urge Incontinence -Wyman's DCed today, Incontinence persistent. -On Oxybutynin 15 daily and vibegron 75 daily. Has not followed up with Uro for 2 years now. -Urology consult #Dementia: Baseline dementia -CT head: age-related brain involution with moderate microvascular ischemic changes -Patient assessment and stated ziprasidone decreased from 120 HS to 100 HS; continue -decrease divalproex with elevated valproic acid as above -continue donepezil #Schizoaffective disorder and bipolar disorder Stable with medication now H/O hallucinations on lowering med dose in past. Under Ziprasidone 120 mg PO HS. Continue Bupropion and #Diabetes: -Controlled on metformin at home; held -Most recent A1C 5.6 -Defer SSI at this time; T2DM diet #Elevated troponin: Resolved. # O2 since admission No chronic lung disease. On low flow 2 L/min. Could not wean off from O2-- Desat to 86 %. Will continue O2 for now. Ordered Chest Xray. VTE ppx: SCDs and TEDs Diet: T2DM Dispo: - PT/OT consult: Recs Rehabs - Both and Shaista prefer [place] for rehab. Admission and Anticipated Discharge Date Admission Date: June 25, 2024 Supervising Physician Co-Signing Physician Notes Attending Physician Supervision Note: I independently interviewed and examined the patient and verified the briceno history and physical, reviewed labs and image studies and agree with findings and care plan noted above. Comfortable in bed. Denied any concerns. Did wet bed twice after wyman removed - nurse then placed purewick catheter. Vitals reviewed. Alert. No resp distress. Weaknessappears to be multifactorial between urinary tract infection, dehydration, and polypharmacy. -Needs SNF UTI dysuria noted prior to admission. Continue ceftriaxone. E coli - sensitive. dehydrationhad viral enteritis a few weeks ago, now resolved. Venous stasis- d/c lasix. to work with stockings. (no h/o CHF) Polypharmacy very difficult balance due to her schizophrenia/bipolar Attempting to wean medications from outpatient with decreased in wellbutrin which she tolerated. -with elevated dep level this admission - dose decreased. -consider further reduction in dose on discharge. -some of change in cognition could be from being on depakote [facility] especially in bipolar ds setting. -continue Geodon as is - hasn't tolerated weaning by psychiatry provider preadmission. Urinary incontinence - wyman d/pritesh. Purewick in place. Otherwise as above Subjective This AM Mrs. Pardo is sleepy. She responded to me partially to me. Nurse told me she was Review of Systems Review of Systems: As per HPI Physical Exam Physical Exam: Constitutional: Well appearing, No acute distress, Sleepy, partially oriented. HEENT: Atraumatic, Normocephalic, No conjunctival injection CVS: S1 S2 no murmur, Regular Rhythm, no LE edema Respiratory: BL decreased air entry with NVBS. No rhonchi, wheezes, or crackles. No increased work of breathing GI: Soft, Nondistended, Nontender, Normal Bowel sounds + MSK: No gross deformities noted Skin: Warm, Dry, No rashes Results & Data Results & Data Vital Signs (Past 12 Hours) Vital Signs Temp Pulse Resp BP Pulse Ox O2 Del Method O2 Flow Rate 06/28/24 07:45 Nasal Cannula 2 06/28/24 07:03 36.5 C 67 17 156/64 H 97 Nasal Cannula 2 Resident Activity Tracking Resident Involvement: Resident Care Provided Care Provided: Adult Hospital Medicine (6) Hyperlipidemia Hyperlipidemia type: pure hypercholesterolemia Qualified Code(s): E78.00 - Pure hypercholesterolemia, unspecified (7) Hypertension Hypertension type: primary hypertension Qualified Code(s): I10 - Essential (primary) hypertension (8) Diabetes Diabetes mellitus longterm insulin use: without long haul truck driver use Diabetes mellitus type: type 2
--- NOTE | 2024-06-28 15:47 | XRay Report ---
XR chest 1V portable HISTORY: 74 years-old Female Desaturation acute shortness of breath COMPARISON: 06/25/2024 TECHNIQUE: AP view of the chest FINDINGS: Cardiac silhouette is enlarged. Pulmonary vascular congestion. Small pleural effusions with mild biba silar consolidation. No pneumothorax. Bones appear grossly intact. IMPRESSION: 1. Cardiomegaly with pulmonary vascular congestion. 2. Small pleural effusions with bibasilar consolidation. ACT 112: Negative or not required by law. The above report was generated using voice recognition software. It may contain grammatical, syntax o r spelling errors. Electronically signed by: Albaro Valle M.D. 06/28/2024 3:46 PM
[2024-06-28] MEDS: FUROSEMIDE 20 MG TAB PO ONE (21:13)
--- NOTE | 2024-06-29 07:31 | Hospitalist Progress Note ---
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 -Walker at baseline. -Trauma Imaging: no evidence of injury - PT/OT consult: Recs Rehabs #Urinary Tract Infections - E coli - Abx D5; Nitrofurantoin D3; Will DC today after evening dose. #Urge Incontinence -Wyman's DCed today, Incontinence persistent. -On Oxybutynin 15 daily and vibegron 75 daily. Has not followed up with Uro for 2 years now. -F/U Uro on DC. #Dementia: Baseline dementia -continue donepezil #Schizoaffective disorder and bipolar disorder Stable with medication now H/O hallucinations on lowering med dose in past. Under Ziprasidone 120 mg PO HS. Continue Bupropion #Diabetes: -Controlled on metformin at home; held -Most recent A1C 5.6 -Defer SSI at this time; T2DM diet #Elevated troponin: Resolved. # O2 since admission No chronic lung disease. On low flow 2 L/min. Could not wean off from O2-- Desat to 86 %. Will continue O2 for now. Ordered Chest Xray: Minimal pleural effusion, Bibasilar consolidation( does not seem PNE on clinical exam) Will re-start her Lasix back. VTE ppx: SCDs and TEDs Diet: T2DM Dispo: - PT/OT consult: Recs Rehabs Clinically stable for DC - Both and Shaista prefer [place] for rehab. Admission and Anticipated Discharge Date Admission Date: June 25, 2024 Supervising Physician Co-Signing Physician Notes Attending Physician Supervision Note: I independently interviewed and examined the patient and verified the briceno history and physical, reviewed labs and image studies and agree with findings and care plan noted above. Comfortable in bed. Denied any concerns. Vitals reviewed. Alert. No resp distress. RRR. CTA anteriorly. Weaknessappears to be multifactorial between urinary tract infection, dehydration, and polypharmacy. -Needs SNF UTI dysuria noted prior to admission. Continue ceftriaxone. E coli - sensitive. dehydrationhad viral enteritis a few weeks ago, now resolved. HFpEF - Echo EF 65%. Lasix held initially due to probable hypovolemia contributing to weakness. CXR 06/29 - increased pul congestion and small bilateral pleural effusion. -Resume home dose lasix. Polypharmacy very difficult balance due to her schizophrenia/bipolar Attempting to wean medications from outpatient with decrease in wellbutrin which she tolerated. -with elevated dep level this admission - dose decreased. -consider further reduction in dose on discharge. -some of change in cognition could be from being on depakote residential especially in bipolar ds setting. -continue Geodon as is - hasn't tolerated weaning by psychiatry provider preadmission. Urinary incontinence - wyman d/pritesh. Purewick in place. Otherwise as above Subjective This AM Shaista is much better than yesterday. She is partially oriented, told her 's name. Was able to say Day of week. No new concern from Nurse as well. Review of Systems Review of Systems: As per HPI Physical Exam Physical Exam: Constitutional: Well appearing, No acute distress, partially oriented. HEENT: Atraumatic, Normocephalic, No conjunctival injection CVS: S1 S2 no murmur, Regular Rhythm, no LE edema Respiratory: BL decreased air entry with NVBS. No rhonchi, wheezes, or crackles. No increased work of breathing GI: Soft, Nondistended, Nontender, Normal Bowel sounds + MSK: No gross deformities noted Skin: Warm, Dry, No rashes Results & Data Results & Data Vital Signs (Past 12 Hours) Vital Signs Temp Pulse Resp BP Pulse Ox O2 Del Method O2 Flow Rate 06/29/24 06:53 36.3 C L 79 17 164/90 H 7 L Nasal Cannula 2 06/28/24 21:10 Nasal Cannula 2 Resident Activity Tracking Resident Involvement: Resident Care Provided Care Provided: Adult Hospital Medicine (6) Hyperlipidemia Hyperlipidemia type: pure hypercholesterolemia Qualified Code(s): E78.00 - Pure hypercholesterolemia, unspecified (7) Hypertension Hypertension type: primary hypertension Qualified Code(s): I10 - Essential (primary) hypertension (8) Diabetes Diabetes mellitus terminal computer operator insulin use: without terminal computer operator use Diabetes mellitus type: type 2
[2024-06-29] MEDS: FUROSEMIDE 20 MG TAB PO ONE (13:21)
[2024-06-30] MEDS ORDERED: POLYETHYLENE (MIRALAX) 17 GM PACK PO PRN (07:20)
[2024-06-30 08:06] LABS: Basophils # (auto) 0.04 K/uL (0.00-0.20); Basophils % (auto) 0.6 %; Eosinophils # (auto) 0.04 K/uL (0.00-0.50); Eosinophils % (auto) 0.6 %; Hematocrit (blood only) 35.2 % (37.0-47.0); Hemoglobin 11.7 g/dl (12.0-16.0); Immature Granulocytes # (auto) 0.11 K/uL (0.01-0.20); Immature Granulocytes % (auto) 1.6 %; Lymphocytes # (auto) 1.51 K/uL (1.20-3.40); Lymphocytes % (auto) 22.2 %; Mean Corpuscular Hgb Conc 33.2 g/dL (32.0-36.0); Mean Corpuscular Volume 93.4 fL (80.0-100.0); Mean Platelet Volume 12.2 fL (9.4-12.4); Monocytes # (auto) 0.99 K/uL (0.11-0.59); Monocytes % (auto) 14.6 %; Neutrophils # (auto) 4.11 K/uL (1.40-6.50); Neutrophils % (auto) 60.4 %; Platelet Count 264 K/uL (130-400); RDW Coefficient of Variation 14.4 % (11.5-14.5); RDW Standard Deviation 49.5 fL (36.4-46.3); Red Blood Count 3.77 M/uL (4.20-5.40)
[2024-06-30 08:25] LABS: BUN Creatinine Ratio 19.1 (10-20); Calcium 8.7 mg/dl (8.6-10.3); Creatinine Clr Calc Pharmacy 60.3 ml/min; Potassium 4.3 mmol/L (3.5-5.1)
--- NOTE | 2024-06-30 10:08 | Hospitalist Progress Note ---
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 -Walker at baseline. -Trauma Imaging: no evidence of injury - PT/OT consult: Recs Rehabs #Urinary Tract Infections - Ecoli pansensitive, completed Abx. #Urge Incontinence -Wyman's DCed today, Incontinence persistent. -On Oxybutynin 15 daily and vibegron 75 daily. Has not followed up with Uro for 2 years now. -F/U Uro on DC. #Dementia: Baseline dementia -continue donepezil #Schizoaffective disorder and bipolar disorder Stable with medication now H/O hallucinations on lowering med dose in past. Under Ziprasidone 120 mg PO HS. Continue Bupropion #Diabetes: -Controlled on metformin at home; held -Most recent A1C 5.6 -Defer SSI at this time; T2DM diet #Elevated troponin: Resolved. # O2 since admission No chronic lung disease. On low flow 2 L/min. Could not wean off from O2-- Desat to 86 %, Will continue O2 for now. Ordered Chest Xray: Minimal pleural effusion, Bibasilar consolidation( does not seem PNE on clinical exam). Home dose Lasix restarted. VTE ppx: SCDs and TEDs Diet: T2DM Dispo: - PT/OT consult: Recs Rehabs Clinically stable for DC - Both and Shaista prefer [place] for rehab. Admission and Anticipated Discharge Date Admission Date: June 25, 2024 Supervising Physician Co-Signing Physician Notes Attending Physician Supervision Note: I independently interviewed and examined the patient and verified the briceno history and physical, reviewed labs and image studies and agree with findings and care plan noted above. Comfortable in bed. Denied any concerns. Vitals reviewed. Alert. No resp distress. comfortable. WeaknessRecurrent falls. multifactorial - urinary tract infection, dehydration, and polypharmacy. -Needs SNF UTI dysuria noted prior to admission. E coli - sensitive. Treated dehydrationhad viral enteritis a few weeks ago, now resolved. HFpEF - Echo EF 65%. Lasix held initially due to probable hypovolemia contributing to weakness. CXR 06/29 - increased pul congestion and small bilateral pleural effusion. -Resumed home dose lasix. Polypharmacy very difficult balance due to her schizophrenia/bipolar Attempting to wean medications from outpatient with decrease in wellbutrin which she tolerated. -Elevated dep level this admission - dose decreased. -consider further reduction in dose on discharge. -continue Geodon as is - hasn't tolerated weaning by psychiatry provider preadmission. Urinary incontinence - wyman d/pritesh. Purewick in place. Otherwise as above Subjective This AM Shaista is stable from yesterday. She is partially oriented, told her 's name. Was able to say Day of week. No new concern from Nurse as well. Review of Systems Review of Systems: As per HPI Physical Exam Physical Exam: Constitutional: Well appearing, No acute distress, partially oriented. HEENT: Atraumatic, Normocephalic, No conjunctival injection CVS: S1 S2 no murmur, Regular Rhythm, no LE edema Respiratory: BL decreased air entry with NVBS. No rhonchi, wheezes, or crackles. No increased work of breathing GI: Soft, Nondistended, Nontender, Normal Bowel sounds + MSK: No gross deformities noted Skin: Warm, Dry, No rashes Results & Data Results & Data Vital Signs (Past 12 Hours) Vital Signs Temp Pulse Resp BP Pulse Ox O2 Del Method O2 Flow Rate 06/30/24 07:19 36.3 C L 78 16 126/78 98 Nasal Cannula 2 Resident Activity Tracking Resident Involvement: Resident Care Provided Care Provided: Adult Hospital Medicine (6) Hyperlipidemia Hyperlipidemia type: pure hypercholesterolemia Qualified Code(s): E78.00 - Pure hypercholesterolemia, unspecified (7) Hypertension Hypertension type: primary hypertension Qualified Code(s): I10 - Essential (primary) hypertension (8) Diabetes Diabetes mellitus terminal operations manager insulin use: without terminal operations manager use Diabetes mellitus type: type 2
--- NOTE | 2024-07-01 07:24 | Discharge Summary ---
Date of Service July 01, 2024 Admission HPI Per Admitting Provider Patient is a 74-year-old female with a past medical history of urinary incontinence, TIA, lower extremity edema, hypothyroidism, hyperlipidemia, dementia, schizophrenia, bipolar disorder. She was at [facility] from 05/16 to 05/19 after a fall, she was treated for UTI with cefdinir, and stated her bupropion was decreased from 400-150 Mg. she went to rehab for approximately 2 weeks after this and her stated that she was doing that. They went to [place] to visit family for [place] and all seem to develop flulike symptoms/vomiting for few days. This has since resolved. She has been doing well at home until yesterday when she could not get out of bed. She had extreme weakness and when her tried to help her to the bathroom she lost strength in her legs and he slowly lowered her to the floor. she has not been eating or drinking much for the past few days. He also noted that her tremor is worse; progressing from just her arms to now her head. He stated that her PCP decreased her Geodon from 60 Mg 2 tabs HS to 60+40 HS. When she was at [facility] this medication twice daily instead of just at bedtime and she became extremely tired and slept all day. She stated that she was complaining of some burning with urination a couple days ago and he gave her cranberry and urinary relief medication. The symptoms have since resolved. He also noted that she has been confused for the past few days. She is continue to take Lasix Thursday and Thursday for lower extremity edema, but has been acutely worsened since discharge from recent hospitalization. Transitional care notes noted that she was to discontinue Lasix and Ramipril her stated he was never told this and she has still been taking them. Patient denies fever, chills, headache, dizziness, lightheadedness, dyspnea, chest pain, vomiting, dysuria, hematuria. She has healing ecchymosis to right forehead and left neck after fall 05/16 in which she hit her head off the shower. Her takes care of her at home. She does not use oxygen at baseline; on 2 L O2 nasal cannula on admission. She did not get her home medications this morning. She has a living will stating DNR/DNI status. Principal Diagnosis UTI, AMS Discharge Exam Constitutional: well-appearing, no acute distress HEENT: NCAT, no conjunctival injection CV: regular rhythm, no murmur appreciated, extremities well-perfused Resp: CTABL, no wheezes/rales/rhonchi appreciated, no increased work of breathing GI: soft, nondistended, nontender MSK: no gross deformities appreciated Skin: warm, dry, no rash appreciated Neuro: alert, oriented, no focal neurologic deficit appreciated Discharge Data Allergies Allergy/AdvReac Type Severity Reaction Status Date / Time topiramate AdvReac Intermediate CONFUSION Verified 06/13/24 10:20 Consultations 06/25/24 09:59 ED Decision to Admit Stat Ordered Studies 06/25/24 06:17 CT cervical spine wo con Stat CT head/brain wo con Stat 06/25/24 07:17 CT abd pelvis IV con only Stat Hospital Course (1) Elevated troponin: (2) Acute UTI: (3) Recurrent falls: (4) History of colon polyps: (5) Generalized weakness: (6) Hyperlipidemia: (7) Hypertension: (8) Diabetes: (9) Hypothyroidism: (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 -Walker at baseline. -Trauma Imaging: no evidence of injury - PT/OT consult: Recs Rehabs #Urinary Tract Infection-> resolved - Ecoli pansensitive, completed Abx. #Urge Incontinence -Had wyman, was d/c, Incontinence persistent. -On Oxybutynin 15 daily and vibegron 75 daily. Has not followed up with Uro for 2 years now. -F/U Uro on DC. #Dementia: Baseline dementia -continue donepezil #Schizoaffective disorder and bipolar disorder Stable with medication now H/O hallucinations on lowering med dose in past. valproic acid mildly elevated at 113 -Decrease divalproex 43495 HS -> 1000 HS-> continue to monitor levels as outpatient Ziprasidone 120 mg PO HS. Continue Bupropion #Diabetes: -Most recent A1C 5.6 - resume metformin at d/c #Elevated troponin: Resolved. # Hypoxia-> resolved No chronic lung disease. Wean from 2L NC to room air x 24 hrs Ordered Chest Xray: Minimal pleural effusion, Bibasilar consolidation( does not seem PNE on clinical exam). Were holding home Lasix dose-> Home dose Lasix restarted #HTN - lisinopril held on admission due to mildly hypotension and YISEL; resume as blood pressure tolerates - continue Procardia #YISEL -> resolved - Creatine on admission= 1.25-> back to baseline 0.89 07/01 Chronic stable diagnoses: HLD - continue statin hypothyroidism - continue levothyroxine Total Time Total Time Spent Total Time Spent (In Minutes): see attending attetsation Discharge Plan Discharge Items Patient Disposition: Transfer Inpatient Rehab Fac Reason For Visit: FALLS, AMS Discharge Diagnosis: Fall, AMS Activity: Per Instructions section Non-emergency contact: Primary Care Provider Call non-emergency contact if: you have any medication questions Follow-up/Referrals: Ami Montana DO [Primary Care Provider] - Diet: Regular Addtl Attending Provider Instructions: 74 Y O Female with PMH of dementia, Hyperlipidemia, Hypertension, DM II, Hypothyroidism presented to ER with recurrent falls and feeling very weak, burning with urination # Recurrent falls: RFs: Multifactorial, polypharmacy, UTI. -Walker at baseline. -Trauma Imaging: no evidence of injury - PT/OT consult: Recs Rehabs #Urinary Tract Infection-> resolved - Ecoli pansensitive, completed Abx. #Urge Incontinence -Had wyman, was d/c, Incontinence persistent. -On Oxybutynin 15 daily and vibegron 75 daily. Has not followed up with Uro for 2 years now. -F/U Uro on DC. #Dementia: Baseline dementia -continue donepezil #Schizoaffective disorder and bipolar disorder Stable with medication now H/O hallucinations on lowering med dose in past. valproic acid mildly elevated at 113 -Decrease divalproex 88879 HS -> 1000 HS-> continue to monitor levels as outpatient Ziprasidone 120 mg PO HS. Continue Bupropion #Diabetes: -Most recent A1C 5.6 - resume metformin at d/c #Elevated troponin: Resolved. # Hypoxia-> resolved No chronic lung disease. Wean from 2L NC to room air x 24 hrs Ordered Chest Xray: Minimal pleural effusion, Bibasilar consolidation( does not seem PNE on clinical exam). Were holding home Lasix dose-> Home dose Lasix restarted #HTN - lisinopril held on admission due to mildly hypotension and YISEL; resume as blood pressure tolerates - continue Procardia #YISEL -> resolved - Creatine on admission= 1.25-> back to baseline 0.89 07/01 Chronic stable diagnoses: HLD - continue statin hypothyroidism - continue levothyroxine Pending Studies at Discharge: No Stand-Alone Forms: My [facility] Skilled Items Patient informed of condition?: Yes DNR: Yes Discharge Level of Care: Acute rehab Communicable Disease: No Discharge Prognosis: Improving Lines: None Urinary Catheter: No Medications and DC Order Prescriptions: Continued alendronate 70 mg tablet 70 mg PO WK Qty: 12 3RF Hold Instructions: per dentist d/t extraction and implants Rx Instructions: TAKE 1 TABLET WEEKLY WITH 8OZ OF WATER ON AN EMPTY STOMACH AND REMAIN UPRIGHT FOR AT LEAST 30 MINUTES Gemtesa 75 mg tablet 75 mg PO DAILY Qty: 90 3RF levothyroxine 125 mcg tablet 125 mcg PO DAILY Qty: 90 1RF nifedipine 30 mg tablet extended release 24hr 30 mg PO QAM Qty: 90 1RF Rx Instructions: TAKE 1 TABLET ONCE DAILY oxybutynin chloride 15 mg tablet extended release 24hr 15 mg PO QAM Qty: 90 1RF donepezil 5 mg tablet 5 mg PO QPM Qty: 90 1RF metformin 500 mg tablet extended release 24 hr 500 mg PO QAM Qty: 90 1RF furosemide 20 mg tablet 20 mg PO 3XWK Qty: 36 3RF aspirin 81 mg tablet,delayed release (DR/EC) 81 mg PO QAM cyanocobalamin (vitamin B-12) 500 mcg tablet,disintegrating 500 mcg SL QAM Qty: 30 magnesium oxide 400 mg (241.3 mg magnesium) tablet 400 mg PO QAM cholecalciferol (vitamin D3) 25 mcg (1,000 unit) capsule 1,000 unit PO QAM ziprasidone HCl 60 mg capsule 120 mg PO HS Qty: 90 3RF atorvastatin 10 mg tablet 10 mg PO DAILY divalproex 500 mg tablet extended release 24 hr 1,000 mg PO HS calcium citrate 200 mg (950 mg) tablet 200 mg PO DAILY bupropion HCl 150 mg tablet sustained-release 12 hr 150 mg PO QAM Qty: 30 0RF Held divalproex 250 mg tablet extended release 24 hr 250 mg PO HS Hold Instructions: on admission valproic acid mildly elevated at 113 - decreased divalproex 45606 HS -> 1000 HS lisinopril 40 mg tablet 40 mg PO DAILY Hold Instructions: Held on admission as was mildly hypotensive-> plan to resume when blood pressure can tolerate Discharge Orders: Discharge Order (Routine); Ordered 07/01/24 Ordered By: Kasandra Jeffrey Admission Data Admit Date/Time: 06/25/24 10:24 Attending Provider: Asiya Cadena Admit Provider: Chandan Kelsey Primary Care Provider: Ami Montana Other Providers: Chandan Kelsey Supervising Physician Co-Signing Physician Notes I personally examined the patient and verified briceno points of history and exam, discussed case, and agree with decision making and plan documented by Dr. Jeffrey. Patient recommended to follow-up with urology, she is on oxybutynin 50 mg daily and fibric on 75 mg daily, continues to have incontinence, Wyman has been removed. Patient completed course of antibiotics for UTI. She has been discharged to [facility] for rehab. Resident Activity Tracking Resident Involvement: Resident Care Provided Care Provided: Adult Hospital Medicine
[2024-07-01 08:16] VITALS: TEMP 98.1
[2024-07-01] MEDS: FUROSEMIDE 20 MG TAB PO SCH (08:53)
[2024-07-01 12:11] VITALS: BP 126/80; PULSE 80; RESP 17; O2SAT 98
== END 2024-07-01 13:23 | DRG 690 ==
LOC: ED 05:50 → EDINP 10:24 → INTOOBSV 10:24 → SUATTDRO 10:24 → 2S 11:49 → 3N 06-26 18:44